=== PATIENT | female | born 1985 | race Caucasian/White ===

== ENCOUNTER 2016-07-29 22:36 | Emergency (ER) | payer OTHER ==
[~2016-07-29] VITALS: Ht 165.1 cm; Wt 94.0 kg
[~2016-07-29 22:36] MED LIST: ACET-1256 PO; CETI10TA10 PO; CIPR-255 PO; EFFSR150 PO; EPP3/2 IM; IBUP-103 PO; LEVOIUD INT UTER
[2016-07-29 22:45] VITALS: TEMP 36.6; Ht 165.1 cm; Wt 94.0 kg
[2016-07-29] MEDS ORDERED: METHYLPREDNISOLONE 125 MG VIAL IV STA (22:45)
[2016-07-29] MEDS ORDERED: SODIUM CHLORIDE 0.9% 1000ML 1,000 ML IV ONE (22:45)
[2016-07-29 22:57] LABS: COMPLETE YES; HEMATOCRIT 42.3 % (37-47); IG% 0.1 %; LYMPH % 38.5 %; LYMPH ABS # 3.13 K/uL (1.2-3.4); MEAN CELL VOLUME 89.2 fL (80-100); MEAN CORPUSCULAR HEMOGLOBIN 31.4 pg (25-34); MEAN CORPUSCULAR HGB CONC 35.2 g/dl (32-36); MEAN PLATELET VOLUME 9.8 fL (7.4-10.4); MONO % 3.3 %; NEUT % 58.1 %; PLATELET COUNT 282 K/uL (130-400); RED BLOOD COUNT 4.74 M/uL (4.2-5.4); WHITE BLOOD COUNT 8.12 K/uL (4.8-10.8)
[2016-07-29] MEDS ORDERED: TRAM-453 PO (23:04)
[2016-07-29] MEDS ORDERED: DIPH1TAB87 PO (23:04)
[2016-07-29] MEDS ORDERED: DiphenhydrAMINE HCL 50 MG/ML VIAL ONE (23:10)
[2016-07-29 23:15] LABS: BUN/CREATININE RATIO 12.9 (10-20); POTASSIUM 3.2 mmol/L (3.5-5.1)
[2016-07-29 23:17] LABS: ALB/GLOB RATIO 1.1 (0.9-2)
[2016-07-30] MEDS ORDERED: LORAZEPAM 2 MG/ML 1 ML VIAL IV STA (00:30)
[2016-07-30] MEDS ORDERED: ALBUT/IPRATROP 3MG/0.5MG NEB 3 ML VIAL INH ONE (00:30)
[2016-07-30] MEDS ORDERED: EPP3/2 INJ (02:58)
[2016-07-30] MEDS ORDERED: PRED20TA PO (02:58)
[2016-07-30] MEDS ORDERED: ALBUTEROL HFA 8 GM INHALER INH ONE (03:00)
[2016-07-30 03:19] VITALS: BP 178/91; PULSE 99; O2SAT 99
--- NOTE | 2016-07-30 03:55 | EMERGENCY ROOM VISIT NOTE ---
History First contact with patient: 22:38 Chief Complaint: ALLERGIC REACTION Stated Complaint: ALLERGIC REACTION Nursing Triage Summary: ate plaintains 20 min [employer] ASSIST[employer], developed throat closing, hives torso. self medicated with prednisone 60 po,benadryl 50 mg po, neb albuterol and epipen. 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 allergic to sulfa, ivp dye, pineapple. meds : tramadol, effexor History of Present Illness The patient is a 30 year old female who presents to the Emergency Room with complaints of allergic reaction symptoms that began around 90 minutes prior to arrival. The patient states that she ate plan pains around 9 PM tonight, and started having flushing of her chest and tingling in her lips. She became concerned for an anaphylactic reaction and she has had similar symptoms in the past. She took oral prednisone and Benadryl at home. She used her EpiPen around 9:15 and used a nebulized albuterol treatment at home. 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 She contacted EMS who now bring the patient for further evaluation. At the time of presentation the patient's symptoms have nearly completely resolved. She does have mild itching of her scalp and did have one episode of diarrhea. She is having some minimal chest tightness but not distinct pain. No abdominal pain or difficulty breathing. She rates her current discomfort a 2/10. Review of Systems More than 10 systems were reviewed and otherwise negative with the exception of history of present illness. Past Medical/Surgical History Medical Problems: (1) Asthma (2) Celiac disease (3) section (4) Cholecystectomy (5) Kidney stone (6) Left shoulder surgrey (7) Pneumonia (8) [place] Teeth Removal Surgical Problems: (1) H/O ureterostomy Family History FH: heart disease Hypertension Social History Smoking Status: Never Smoker Alcohol Use: occasionally Drug Use: none Marital Status: single Housing Status: lives with family Occupation Status: student Current/Historical Medications Scheduled Levonorgestrel (Iud) (Mirena), 20 MCG INT UTER CONTINOUS Prednisone (Prednisone), 0 PO DAILY Venlafaxine Hcl (Effexor Extended Rel), 150 MG PO QPM Scheduled PRN Acetaminophen (Tylenol), 1,000 MG PO Q6 PRN for Headache or Pain Cetirizine Hcl (Zyrtec), 10 MG PO DAILY PRN for Allergies Diphenhydramine Hcl (Benadryl Allergy), 50 MG PO DIRECTED PRN for ALLERGIC REACTION Epinephrine (Epipen), 0.3 MG IM UD PRN for ALLERGIC REACTION Epinephrine (Epipen 2-Ian), 1 APPLN INJ DIRECTED PRN for ALLERGIC REACTION Ibuprofen Tab (Advil), 800 MG PO Q8 PRN for Pain or Fever Tramadol Hcl (Ultram), 100 MG PO Q4H PRN for Pain Allergies Coded Allergies: Pineapple (Verified Allergy, Severe, Swelling of face,hives and difficulty breathing., 07/29/16) Reported by PT. Sulfa Drugs (Verified Allergy, Intermediate, HIVES, 07/29/16) Ceftriaxone (Verified Allergy, Mild, itching, 07/29/16) Sumatriptan (Verified Allergy, Mild, ., 07/29/16) Physical Exam Vital Signs Date Time Temp Pulse Resp B/P Pulse Ox O2 Delivery O2 Flow Rate FiO2 07/30/16 03:19 99 18 178/91 99 07/30/16 02:22 96 18 170/96 94 Room Air 07/30/16 02:14 114 07/30/16 00:40 99 20 162/93 100 Room Air 07/29/16 22:45 97 Room Air 07/29/16 22:45 36.6 99 20 151/94 97 Room Air 07/29/16 22:45 102 Pain Rating (0-10): 0 Physical Exam VITALS: Vitals are noted on the nurse's note and reviewed by myself. Vital signs stable. GENERAL: Well-developed, well-nourished, white female, who is in no acute distress and resting comfortably. Patient is cooperative with the examination. HEAD: Normocephalic atraumatic. EYES: Pupils equal round and reactive to light and accommodation. Conjunctivae without injection, sclerae without icterus. Extraocular movements intact. MOUTH: Mucous membranes moist. Tonsils are not enlarged. Pharynx without erythema, blood, or exudate. Uvula midline. Airway patent. NECK: Supple without nuchal rigidity. No lymphadenopathy. No thyromegaly. Cervical spine is nontender. HEART: Regular rate and rhythm without murmurs gallops or rubs. LUNGS: Clear to auscultation bilaterally without wheezes, rales or rhonchi. No retractions or accessory muscle use. ABDOMEN: Positive normal bowel sounds x 4. Soft, nontender, without masses or organomegaly. No guarding or rebound tenderness. MUSCULOSKELETAL: No muscle atrophy, erythema, or edema noted. Full range of motion without joint tenderness in all extremities. SKIN: The skin was with scant urticaria appreciated primarily along the superior forehead and mid back Medical Decision & Procedures Laboratory Results 07/29/16 22:25 Red Blood Count 4.74, Mean Corpuscular Volume 89.2, Mean Corpuscular Hemoglobin 31.4, Mean Corpuscular Hemoglobin Concent 35.2, Mean Platelet Volume 9.8, Neutrophils (%) (Auto) 58.1, Lymphocytes (%) (Auto) 38.5, Monocytes (%) (Auto) 3.3, Eosinophils (%) (Auto) 0.0, Basophils (%) (Auto) 0.0, Neutrophils # (Auto) 4.71, Lymphocytes # (Auto) 3.13, Monocytes # (Auto) 0.27, Eosinophils # (Auto) 0.00, Basophils # (Auto) 0.00 07/29/16 22:25 Test 07/29/16 22:25 White Blood Count 8.12 K/uL (4.8-10.8) Red Blood Count 4.74 M/uL (4.2-5.4) Hemoglobin 14.9 g/dL (12.0-16.0) Hematocrit 42.3 % (37-47) Mean Corpuscular Volume 89.2 fL (80-100) Mean Corpuscular Hemoglobin 31.4 pg (25-34) Mean Corpuscular Hemoglobin Concent 35.2 g/dl (32-36) Platelet Count 282 K/uL (130-400) Mean Platelet Volume 9.8 fL (7.4-10.4) Neutrophils (%) (Auto) 58.1 % Lymphocytes (%) (Auto) 38.5 % Monocytes (%) (Auto) 3.3 % Eosinophils (%) (Auto) 0.0 % Basophils (%) (Auto) 0.0 % Neutrophils # (Auto) 4.71 K/uL (1.4-6.5) Lymphocytes # (Auto) 3.13 K/uL (1.2-3.4) Monocytes # (Auto) 0.27 K/uL (0.11-0.59) Eosinophils # (Auto) 0.00 K/uL (0-0.5) Basophils # (Auto) 0.00 K/uL (0-0.2) RDW Standard Deviation 40.3 fL (36.4-46.3) RDW Coefficient of Variation 12.6 % (11.5-14.5) Immature Granulocyte % (Auto) 0.1 % Immature Granulocyte # (Auto) 0.01 K/uL (0.00-0.02) Anion Gap 9.0 mmol/L (3-11) Est Creatinine Clear Calc Drug Dose 92.4 ml/min Estimated GFR () 86.9 Estimated GFR (Non- 75.0 BUN/Creatinine Ratio 12.9 (10-20) Calcium Level 9.0 mg/dl (8.5-10.1) Total Bilirubin 0.5 mg/dl (0.2-1) Aspartate Amino Transf (AST/SGOT) 24 U/L (15-37) Alanine Aminotransferase (ALT/SGPT) 34 U/L (12-78) Alkaline Phosphatase 66 U/L (45-117) Total Protein 7.6 gm/dl (6.4-8.2) Albumin 4.0 gm/dl (3.4-5.0) Globulin 3.6 gm/dl (2.5-4.0) Albumin/Globulin Ratio 1.1 (0.9-2) Medications Administered Medications (Trade) Dose Ordered Sig/Estuardo Route Start Time Stop Time Status Last Admin Dose Admin Sodium Chloride (Nss 1000ml) 1,000 ml @ 999 mls/hr Q1H1M ONCE IV 07/29/16 22:45 07/29/16 23:45 DC 07/29/16 22:57 999 MLS/HR Methylprednisolone Sodium Succinate (Solu-Medrol IV) 125 mg NOW STAT IV 07/29/16 22:45 07/29/16 22:47 DC 07/29/16 23:01 125 MG Diphenhydramine HCl (Benadryl Inj) 50 mg STK-MED ONCE .ROUTE 07/29/16 23:10 07/29/16 23:11 DC 07/29/16 23:10 50 MG Albuterol/ Ipratropium (Duoneb) 3 ml NOW ONCE INH 07/30/16 00:30 07/30/16 00:31 DC 07/30/16 00:39 3 ML Lorazepam (Ativan Inj) 1 mg NOW STAT IV 07/30/16 00:30 07/30/16 00:31 DC 07/30/16 00:39 1 MG ED Course Physical exam and history were performed. Nursing notes and EMR were reviewed. Patient appears to have suffered allergic reaction after eating plan pains this evening. She did use her epinephrine at home and now presents for further evaluation. IV access was established prehospital. Blood work was ordered. The patient was hydrated with normal saline here. She was given 125 mg IV Solu- Medrol. The patient's blood work is as above and was reviewed. She does not have a significant elevated white blood cell count, anemia, bandemia, or significant electrolyte imbalance. Throughout her stay the patient did report some increased itching and some wheezing. She was given additional Benadryl and a DuoNeb treatment here. The patient was also medicated with 1 mg IV Ativan. We did monitor the patient for greater than 4 hours here in the department. She had been dosed with epinephrine roughly 5-1/2 hours prior and did not appear to exhibit any rebound reaction. She was very comfortable after treatment here in the department and does appear stable for discharge home. I will give her a Ventolin inhaler as well as updated prescriptions for a prednisone taper and a new EpiPen 2 pack. The patient was asked to follow with her primary care physician in the next 1-2 days for recheck. She was certainly invited back to the ER with any new, worsening, or concerning symptoms. The chart was completed utilizing [employer] Speech Voice Recognition Software. Grammatical errors, random word insertions, pronoun errors, and incomplete sentences are an occasional consequence of this system due to software limitations, ambient noise, and hardware issues. Any formal questions or concerns about the content, text, or information contained within the body of this dictation should be directly addressed to the provider for clarification. . Medical Decision Differential diagnosis: Etiologies such as allergic reaction, anaphylaxis, urticaria, Veloz-Rufino syndrome, toxic epidermal necrolysis, erythema multiforme, cellulitis, as well as others were entertained. Impression Primary Impression: Allergic reaction Departure Information Dispostion Home / Self-Care Condition GOOD Prescriptions Epinephrine (EPIPEN 2-IAN) 0.3 Mg Inj 1 APPLN INJ DIRECTED Y for ALLERGIC REACTION, #1 PKT Prov: Cara, Teddy A., PA-C 07/30/16 Prednisone (Prednisone) 20 Mg Tab 0 PO DAILY, #18 TAB 3 DAILY FOR 3 DAYS, THEN 2 DAILY FOR 3 DAYS, THEN 1 DAILY FOR 3 DAYS. Prov: Teddy Marroquin PA-C 07/30/16 Forms HOME CARE DOCUMENTATION FORM, IMPORTANT VISIT INFORMATION Patient Instructions My [facility] Additional Instructions You were seen and evaluated today on an emergency basis only. This is not a substitute for, or an effort to provide, complete comprehensive medical care. It is not possible to recognize and treat all injuries or illnesses in a single emergency department visit. For this reason it is recommended that you followup with your primary care physician this week for ongoing care and evaluation. Take prednisone as prescribed. Use Benadryl 25-50 mg every 6 hours as needed at home. Use your EpiPen if needed. You are welcome to return to the emergency department anytime with new, worsening, or concerning symptoms.
== END 2016-07-30 03:19 | disposition home or self-care (01) ==
LOC: EDBD 22:36 → C.EDB 22:37
DX: T78.09XA Anaphylactic reaction due to other food products, initial encounter (principal); X58.XXXA Exposure to other specified factors, initial encounter

== ENCOUNTER → 2016-07-31 | Outpatient (CLI) | payer OTHER ==
[~2016-07-31] MED LIST changes: -CIPR-255 PO; +DIPH1TAB87 PO; +EPP3/2 INJ; +OXYC-57 PO; +PRED20TA PO; +PRENTAB26 PO; +TRAM-453 PO
== END | disposition home or self-care (01) ==
LOC: C.PAPS 14:06
PROVIDERS: ATTEND Obstetrics & Gynecology
DX: Z12.4 Encounter for screening for malignant neoplasm of cervix (principal)

== ENCOUNTER → 2016-11-11 | Outpatient (CLI) | payer BC ==
[~2016-11-11] MED LIST changes: +DIPH1TAB PO; -DIPH1TAB87 PO
[2016-11-11 12:47] LABS: INSULIN FASTING 16.6 mU/L (3-25); INSULIN LOG 1.2201
[2016-11-11 13:24] LABS: CHOLESTEROL/HDL RATIO 4.6
[2016-11-11 13:30] LABS: CALCULATED INSULIN SENSITIVITY 0.307
== END | disposition home or self-care (01) ==
LOC: C.LAB1850 09:31
PROVIDERS: ATTEND Obstetrics & Gynecology
DX: Z31.41 Encounter for fertility testing (principal); E28.2 Polycystic ovarian syndrome

== ENCOUNTER 2017-01-06 12:38 | Emergency (ER) | payer BC ==
[~2017-01-06] VITALS: Ht 160 cm; Wt 94.2 kg
[~2017-01-06 12:38] MED LIST changes: -OXYC-57 PO; -PRENTAB26 PO
[2017-01-06 12:42] VITALS: TEMP 36.4; Ht 160 cm; Wt 94.2 kg
[2017-01-06] MEDS ORDERED: PRENTAB26 PO (12:52)
[2017-01-06] MEDS ORDERED: KETOROLAC TROMETHAMINE 30 MG/ML VIAL IV STA (13:14)
[2017-01-06] MEDS ORDERED: SODIUM CHLORIDE 0.9% 1000ML 1,000 ML IV ONE (13:15)
--- NOTE | 2017-01-06 13:35 | EMERGENCY ROOM VISIT NOTE ---
History First contact with patient: 13:00 Chief Complaint: VAGINAL BLEEDING Stated Complaint: EXTREMELY HEAVY PERIOD History of Present Illness The patient is a 31 year old female who presents to the Emergency Room with complaints of heavy vaginal bleeding that started yesterday. The patient has a history of PCOS. She had a Mirena in place until this past August. She had it removed in August, and had a reportedly normal menses directly thereafter. The patient has not had a menses since August. She reports taking a test at home that was negative. She is having significant menstrual cramping. She took 800 mg of ibuprofen this morning with minimal relief. She is passing heavy clots. She is soaking approximately 2-3 pads per hour. The patient is . She is sexually active with one partner. She denies any fever or chills. She is feeling slightly lightheaded and nauseous particularly with standing. Review of Systems 10 system review performed and negative unless noted in HPI or below Past Medical/Surgical History Medical Problems: (1) Asthma (2) Celiac disease (3) section (4) Cholecystectomy (5) Kidney stone (6) Left shoulder surgrey (7) Pneumonia (8) [place] Teeth Removal Surgical Problems: (1) H/O ureterostomy Family History FH: heart disease Hypertension Social History Smoking Status: Never Smoker Alcohol Use: occasionally Drug Use: none Marital Status: single Housing Status: lives with family Occupation Status: student Current/Historical Medications Scheduled Multivit/Min/Iron/Fol Ac/Pren ( Vitamin), 1 TAB PO DAILY Scheduled PRN Epinephrine (Epipen), 0.3 MG IM UD PRN for ALLERGIC REACTION Oxycodone/Acetaminophen 5MG/325MG (Percocet 5MG/325MG), 1-2 TABS PO Q4H PRN for Pain Physical Exam Vital Signs Date Time Temp Pulse Resp B/P (MAP) Pulse Ox O2 Delivery O2 Flow Rate FiO2 01/06/17 16:08 80 17 146/93 99 01/06/17 15:33 80 17 146/93 99 Room Air 01/06/17 14:02 69 16 126/84 Room Air 01/06/17 13:19 60 01/06/17 12:42 36.4 74 18 160/101 99 Room Air Physical Exam VITALS: Vitals are noted on the nurse's note and reviewed by myself. Vital signs stable. GENERAL: 31-year-old female, in no acute distress, nondiaphoretic, well- developed well-nourished. SKIN: The skin was without rashes, erythema, edema, or bruising. HEAD: Normocephalic atraumatic. MOUTH: Mucous membranes moist. NECK: No JVD. HEART: Regular rate and rhythm without murmurs gallops or rubs. LUNGS: Clear to auscultation bilaterally without wheezes, rales or rhonchi. No accessory muscle use. ABDOMEN: Positive bowel sounds x 4.Soft, Mild tenderness to palpation in the suprapubic region , without organomegaly. No guarding or rebound tenderness. MUSCULOSKELETAL: No muscle atrophy, erythema, or edema noted. Strength 5/5 throughout. NEURO: Patient was alert and oriented to person place and time. Normal sensation to touch. No focal neurological deficits. Medical Decision & Procedures ER Provider Diagnostic Interpretation: PELVIC COMPLETE NON OB HISTORY: 31 years-old Female abd cramping heavy menses acute abdominal cramping with vaginal bleeding COMPARISON: CT abdomen and pelvis 03/04/2016 TECHNIQUE: Multiple real-time sonographic images of the deep pelvic structures were obtained transabdominally assessing grayscale appearance, color and spectral flow. Patient refused the transvaginal portion of the study. FINDINGS: Anteflexed uterus measures 11.0 x 5.0 x 4.2 cm. Endometrium measures 0.7 cm. Subcentimeter nabothian cysts are present. The right ovary measures 4.0 x 3.2 x 2.2 cm and is unremarkable with arterial inflow and venous outflow documented. The left ovary measures 3.3 x 2.7 x 2.4 cm and is also within normal limits with arterial inflow and venous outflow documented. No significant free pelvic fluid. IMPRESSION: 1. Unremarkable sonographic appearance of the uterus, endometrium and ovaries without evidence of ovarian torsion. 2. No significant free pelvic fluid. Laboratory Results 01/06/17 13:25 Red Blood Count 4.56, Mean Corpuscular Volume 87.5, Mean Corpuscular Hemoglobin 30.5, Mean Corpuscular Hemoglobin Concent 34.8, Mean Platelet Volume 9.9, Neutrophils (%) (Auto) 63.7, Lymphocytes (%) (Auto) 30.2, Monocytes (%) (Auto) 5.4, Eosinophils (%) (Auto) 0.6, Basophils (%) (Auto) 0.0, Neutrophils # (Auto) 4.49, Lymphocytes # (Auto) 2.13, Monocytes # (Auto) 0.38, Eosinophils # (Auto) 0.04, Basophils # (Auto) 0.00 01/06/17 13:25 Test 01/06/17 13:25 White Blood Count 7.05 K/uL (4.8-10.8) Red Blood Count 4.56 M/uL (4.2-5.4) Hemoglobin 13.9 g/dL (12.0-16.0) Hematocrit 39.9 % (37-47) Mean Corpuscular Volume 87.5 fL (80-100) Mean Corpuscular Hemoglobin 30.5 pg (25-34) Mean Corpuscular Hemoglobin Concent 34.8 g/dl (32-36) Platelet Count 294 K/uL (130-400) Mean Platelet Volume 9.9 fL (7.4-10.4) Neutrophils (%) (Auto) 63.7 % Lymphocytes (%) (Auto) 30.2 % Monocytes (%) (Auto) 5.4 % Eosinophils (%) (Auto) 0.6 % Basophils (%) (Auto) 0.0 % Neutrophils # (Auto) 4.49 K/uL (1.4-6.5) Lymphocytes # (Auto) 2.13 K/uL (1.2-3.4) Monocytes # (Auto) 0.38 K/uL (0.11-0.59) Eosinophils # (Auto) 0.04 K/uL (0-0.5) Basophils # (Auto) 0.00 K/uL (0-0.2) RDW Standard Deviation 39.9 fL (36.4-46.3) RDW Coefficient of Variation 12.4 % (11.5-14.5) Immature Granulocyte % (Auto) 0.1 % Immature Granulocyte # (Auto) 0.01 K/uL (0.00-0.02) Anion Gap 8.0 mmol/L (3-11) Est Creatinine Clear Calc Drug Dose 122.4 ml/min Estimated GFR () 128.4 Estimated GFR (Non- 110.8 BUN/Creatinine Ratio 13.8 (10-20) Calcium Level 9.0 mg/dl (8.5-10.1) Total Bilirubin 0.5 mg/dl (0.2-1) Aspartate Amino Transf (AST/SGOT) 20 U/L (15-37) Alanine Aminotransferase (ALT/SGPT) 27 U/L (12-78) Alkaline Phosphatase 75 U/L (45-117) Total Protein 7.6 gm/dl (6.4-8.2) Albumin 3.9 gm/dl (3.4-5.0) Globulin 3.7 gm/dl (2.5-4.0) Albumin/Globulin Ratio 1.1 (0.9-2) Human Chorionic Gonadotropin, Qual NEG (NEG) Medications Administered Medications (Trade) Dose Ordered Sig/Estuardo Route Start Time Stop Time Status Last Admin Dose Admin Sodium Chloride 1,000 ml @ 999 mls/hr Q1H1M ONCE IV 01/06/17 13:15 01/06/17 14:15 DC 01/06/17 14:02 999 MLS/HR Ketorolac Tromethamine (Toradol Inj) 30 mg NOW STAT IV 01/06/17 13:14 01/06/17 13:17 DC 01/06/17 14:01 30 MG Morphine Sulfate (MoRPHine SULFATE INJ) 4 mg Q1H PRN IV 01/06/17 15:15 01/06/17 16:26 DC 01/06/17 15:31 4 MG ED Course Patient was seen and examined Vital signs including blood pressure were reviewed medications list was verified with patient Labs were obtained, and a saline lock was established The patient was hydrated with 1 L of normal saline. She was given Toradol 30 mg IV for pain. Imaging was performed and reviewed Upon reevaluation, the patient was still complaining of pain. She was given morphine 4 mg IV We discussed the results of her workup. She voiced understanding. She was comfortable being discharged home. I reviewed discharge instructions the patient. They voiced understanding and had no further questions. Medical Decision Differential diagnosis: Abnormal vaginal bleeding, menorrhagia, metrorrhagia, uterine fibroids, endometrial polyps, thyroid abnormality, anemia secondary to acute blood loss, ectopic , intrauterine , ovarian cysts, vaginal laceration This patient is a 31-year-old female that presented to the emergency department with complaint of heavy vaginal bleeding and menstrual cramping. She has not had a menses in several months. She has a history of PCOS. On exam, she had mild tenderness in the suprapubic region. Labs were drawn. She is not significantly anemic. She is not . I performed a pelvic ultrasound, which did not have any significant abnormalities. It is possible that she is having a heavy menses since she hasn't had one in several months. The patient had good pain control in the emergency department. 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 This chart was completed in part utilizing [employer] Speech Voice Recognition software. Attempts were made to minimize the grammatical errors, random word insertions, pronoun errors and incomplete sentences. Any formal questions or concerns about the content, text or information contained within the body of this dictation should be directly addressed to the provider for clarification. Medication Reconcilliation Current Medication List: was personally reviewed by me Blood Pressure Screening Patient's blood pressure: Elevated blood pressure Blood pressure disposition: Elevated BP felt to be situational Impression Primary Impression: Menorrhagia Departure Information Dispostion Home / Self-Care Condition FAIR Prescriptions Oxycodone/Acetaminophen 5MG/325MG (PERCOCET 5MG/325MG) Tab 1-2 TABS PO Q4H Y for Pain, #12 TAB For Initial Treatment Prov: Dixie Dover PA-C 01/06/17 Referrals Ke Mcfarland M.D.(REBECCA) (PCP) Orquidea Wells M.D.(STUDENT LIFE VICE PRESIDENT/OB) Patient Instructions My [facility] Additional Instructions You were evaluated in the emergency department for heavy menstrual bleeding. An ultrasound was performed and did not show any significant abnormalities. Your blood counts also are currently stable. Please follow-up with your property developer as soon as possible. Call tomorrow morning for a follow-up appointment. Ibuprofen 600 mg every 6 hours Percocet 1-2 tabs every 4 hours for severe pain. Do not drink alcohol or drive while taking this medication. This may be taken with ibuprofen, but avoid Tylenol. Return to the emergency department if you have any of the following symptoms: -Soaking more than 2 pads per hour -Dizziness, lightheadedness, difficulty breathing or pain in your chest -Severe abdominal pain
[2017-01-06 13:54] LABS: COMPLETE YES; EOS % 0.6 %; HEMATOCRIT 39.9 % (37-47); IG% 0.1 %; LYMPH % 30.2 %; LYMPH ABS # 2.13 K/uL (1.2-3.4); MEAN CELL VOLUME 87.5 fL (80-100); MEAN CORPUSCULAR HEMOGLOBIN 30.5 pg (25-34); MEAN CORPUSCULAR HGB CONC 34.8 g/dl (32-36); MEAN PLATELET VOLUME 9.9 fL (7.4-10.4); MONO % 5.4 %; NEUT % 63.7 %; PLATELET COUNT 294 K/uL (130-400); RED BLOOD COUNT 4.56 M/uL (4.2-5.4); WHITE BLOOD COUNT 7.05 K/uL (4.8-10.8)
[2017-01-06 14:15] LABS: BUN/CREATININE RATIO 13.8 (10-20); CREATININE 0.72 mg/dl (0.60-1.20); POTASSIUM 3.7 mmol/L (3.5-5.1)
[2017-01-06 14:18] LABS: ALB/GLOB RATIO 1.1 (0.9-2); PREG INTERNAL NEGATIVE QC NEG CLEAR BACKGROUND; PREG INTERNAL POSITIVE QC POS CONTROL LINE
--- NOTE | 2017-01-06 15:10 | DIAGNOSTIC IMAGING REPORT ---
PELVIC COMPLETE NON OB HISTORY: 31 years-old Female abd cramping heavy menses acute abdominal cramping with vaginal bleeding COMPARISON: CT abdomen and pelvis 03/04/2016 TECHNIQUE: Multiple real-time sonographic images of the deep pelvic structures were obtained transabdominally assessing grayscale appearance, color and spectral flow. Patient refused the transvaginal portion of the study. FINDINGS: Anteflexed uterus measures 11.0 x 5.0 x 4.2 cm. Endometrium measures 0.7 cm. Subcentimeter nabothian cysts are present. The right ovary measures 4.0 x 3.2 x 2.2 cm and is unremarkable with arterial inflow and venous outflow documented. The left ovary measures 3.3 x 2.7 x 2.4 cm and is also within normal limits with arterial inflow and venous outflow documented. No significant free pelvic fluid. IMPRESSION: 1. Unremarkable sonographic appearance of the uterus, endometrium and ovaries without evidence of ovarian torsion. 2. No significant free pelvic fluid. The above report was generated using voice recognition software. It may contain grammatical, syntax or spelling errors. Electronically signed by: Tommy Mcallister M.D. 01/06/2017 3:09 PM Dictated Date/Time: 01/06/2017 3:06 PM
[2017-01-06] MEDS ORDERED: MoRPHine SULFATE 4 MG/ML 1 ML CARP\\VIAL IV PRN (15:15)
[2017-01-06] MEDS ORDERED: OXYC-57 PO (15:48)
[2017-01-06 16:08] VITALS: BP 146/93; PULSE 80; O2SAT 99
== END 2017-01-06 16:08 | disposition home or self-care (01) ==
LOC: C.EDB 12:39 → C.EDA 16:08
DX: N92.0 Excessive and frequent menstruation with regular cycle (principal); E28.2 Polycystic ovarian syndrome; J45.909 Unspecified asthma, uncomplicated; K90.0 Celiac disease; Z87.442 Personal history of urinary calculi; Z82.49 Family history of ischemic heart disease and other diseases of the circulatory system

== ENCOUNTER → 2017-06-29 | Outpatient (CLI) | payer OTHER ==
[~2017-06-29] MED LIST changes: -ACET-1256 PO; -CETI10TA10 PO; -DIPH1TAB PO; -EFFSR150 PO; -EPP3/2 INJ; -IBUP-103 PO; -LEVOIUD INT UTER; +OXYC-57 PO; -PRED20TA PO; +PRENTAB26 PO; -TRAM-453 PO
== END | disposition home or self-care (01) ==
LOC: C.LAB1850 13:16
PROVIDERS: ATTEND Obstetrics & Gynecology
DX: O26.899 Other specified pregnancy related conditions, unspecified trimester (principal)

== ENCOUNTER → 2017-07-13 | Outpatient (CLI) | payer OTHER ==
[~2017-07-13] MED LIST changes: +DOXY25TA8 PO; -OXYC-57 PO; +PYRI1TAB40 PO; +VNTHFA/IN INH
== END | disposition home or self-care (01) ==
LOC: C.LABSPEC 10:59
PROVIDERS: ATTEND Obstetrics & Gynecology
DX: Z34.81 Encounter for supervision of other normal pregnancy, first trimester (principal)

== ENCOUNTER 2017-07-19 17:15 | Emergency (ER) | payer OTHER ==
[~2017-07-19] VITALS: Ht 160 cm; Wt 88.0 kg
[~2017-07-19 17:15] MED LIST changes: -DOXY25TA8 PO; -PYRI1TAB40 PO; -VNTHFA/IN INH
[2017-07-19 17:18] VITALS: TEMP 36.9; Ht 160 cm; Wt 88.0 kg
[2017-07-19] MEDS ORDERED: MoRPHine SULFATE 4 MG/ML 1 ML CARP\\VIAL IV STA ×2 (17:33→19:30)
[2017-07-19] MEDS ORDERED: VNTHFA/IN INH (18:01)
[2017-07-19] MEDS ORDERED: PYRI1TAB40 PO (18:01)
[2017-07-19] MEDS ORDERED: DOXY25TA8 PO (18:01)
[2017-07-19 18:12] LABS: EOS % 0.3 %; EOS ABS # 0.03 K/uL (0-0.5); HEMATOCRIT 37.8 % (37-47); HEMOGLOBIN 13.5 g/dL (12.0-16.0); IG# 0.02 K/uL (0.00-0.02); LYMPH % 18.2 %; LYMPH ABS # 1.74 K/uL (1.2-3.4); MEAN CELL VOLUME 86.9 fL (80-100); MEAN CORPUSCULAR HGB CONC 35.7 g/dl (32-36); MEAN PLATELET VOLUME 10.1 fL (7.4-10.4); MONO % 3.1 %; NEUT % 78.2 %; NEUT ABS # 7.47 K/uL (1.4-6.5); PLATELET COUNT 254 K/uL (130-400); RED CELL DISTRIBUTION WIDTH CV 12.7 % (11.5-14.5); RED CELL DISTRIBUTION WIDTH SD 40.6 fL (36.4-46.3); WHITE BLOOD COUNT 9.56 K/uL (4.8-10.8)
[2017-07-19 18:30] LABS: CALCIUM 8.3 mg/dl (8.5-10.1); CREATININE 0.67 mg/dl (0.60-1.20); POTASSIUM 3.6 mmol/L (3.5-5.1)
--- NOTE | 2017-07-19 18:36 | DIAGNOSTIC IMAGING REPORT ---
L SHOULDER MIN 2 VIEWS ROUTINE CLINICAL HISTORY: 31 years-old Female presenting with shoulder pain. TECHNIQUE: Internal rotation, external rotation, and Grashey views of the left shoulder were obtained. COMPARISON: Chest x-ray from 06/02/2015. FINDINGS: No acute fracture or malalignment. Cystic changes suggested in the bony glenoid. Cystic change also suggested at the rotator cuff insertion site suggesting chronic impingement. No radiographic soft tissue abnormality. IMPRESSION: 1. No acute osseous injury. 2. Mild degenerative changes of the glenohumeral joint. 3. Suggestion of chronic rotator cuff impingement. Electronically signed by: Riley Barcenas M.D. 07/19/2017 6:35 PM Dictated Date/Time: 07/19/2017 6:33 PM
--- NOTE | 2017-07-19 18:38 | DIAGNOSTIC IMAGING REPORT ---
CERVICAL SPINE 2 OR 3 VIEWS CLINICAL HISTORY: 31 years-old Female presenting with L shoulder pain . TECHNIQUE: Lateral, frontal, and open-mouth odontoid views of the cervical spine were obtained. COMPARISON: 12/22/2005. FINDINGS: Slight reversal of normal cervical lordosis unchanged and possibly positional. Vertebral bodies maintain normal height and alignment. Intervertebral disc spaces maintained. The C7 vertebral body is fully visualized. No evidence of degenerative change. No radiographic evidence of fracture or subluxation. Lateral masses of C1 articulate normally with C2. Normal predental interval. Normal prevertebral soft tissues. IMPRESSION: No evidence of acute osseous injury or degenerative change of the cervical spine. Electronically signed by: Riley Barcenas M.D. 07/19/2017 6:36 PM Dictated Date/Time: 07/19/2017 6:35 PM
[2017-07-19] MEDS ORDERED: DiphenhydrAMINE HCL 50 MG/ML VIAL IV STA (19:49)
--- NOTE | 2017-07-19 19:49 | DIAGNOSTIC IMAGING REPORT ---
CHEST ONE VIEW PORTABLE CLINICAL HISTORY: 31 years-old Female presenting with cp. TECHNIQUE: Portable upright AP view of the chest was obtained. COMPARISON: 06/02/2015. FINDINGS: Cardiomediastinal silhouette normal. No focal opacity. No large effusion or pneumothorax. Osseous structures normal. Upper abdomen normal. IMPRESSION: 1. No acute cardiopulmonary disease. Electronically signed by: Riley Barcenas M.D. 07/19/2017 7:48 PM Dictated Date/Time: 07/19/2017 7:47 PM
[2017-07-19] MEDS ORDERED: OXYCODONE IR HOME PACK PO ONE (20:30)
[2017-07-19 20:40] VITALS: BP 126/85; PULSE 74; O2SAT 99
--- NOTE | 2017-07-19 21:39 | EMERGENCY ROOM VISIT NOTE ---
History Report prepared by Chris: Luz Herrera Under the Supervision of: Dr. Matt Pennington D.O. First contact with patient: 17:23 Chief Complaint: SHOULDER PAIN Stated Complaint: L SHOULDER & ARM VERY PAINFUL INTO CHEST AND BACK History of Present Illness The patient is a 31 year old female who presents to the Emergency Room with complaints of worsening left shoulder pain starting last night. 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 Around midnight while she was working, she started having left shoulder pain. The pain worsened throughout the night as she was working. She has taken Tylenol, applied ice and heat, and lidocaine patch to no significant relief. The pain worsened after she woke up from sleep. It is radiating into her chest and back. The pain worsens with moving her left arm. Her left arm feels weak and her hand is swollen. She has a history of 3 shoulder surgeries on the left side. 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 She has been nauseous. She is currently 8 weeks . She denies any abdominal pain. She denies any history of diabetes, hypertension, high cholesterol, or smoking. Source of History: patient Onset: last night Position: shoulder (left) Timing: worsening Modifying Factors (Worsening): movement Associated Symptoms: + chest pain, + back pain, + weakness Review of Systems See HPI for pertinent positives & negatives. A total of 10 systems reviewed and were otherwise negative. Past Medical & Surgical Medical Problems: (1) Asthma (2) Celiac disease (3) section (4) Cholecystectomy (5) Kidney stone (6) Left shoulder surgrey (7) Pneumonia (8) [place] Teeth Removal Surgical Problems: (1) H/O ureterostomy Family History FH: heart disease Hypertension Social History Smoking Status: Never Smoker Alcohol Use: occasionally Drug Use: none Marital Status: single Housing Status: lives with family Occupation Status: student Current/Historical Medications Scheduled Doxylamine Succinate (Sleep) (Unisom), 1 TAB PO DAILY Multivit/Min/Iron/Fol Ac/Pren ( Vitamin), 1 TAB PO DAILY Pyridoxine HCl (Vitamin B6), 25 MG PO TID Scheduled PRN Albuterol Hfa (Ventolin Hfa), 2-4 PUFFS INH Q6H PRN for Wheezing Epinephrine (Epipen), 0.3 MG IM UD PRN for ALLERGIC REACTION Allergies Coded Allergies: Pineapple (Verified Allergy, Severe, Swelling of face,hives and difficulty breathing., 07/19/17) Reported by PT. Iodinated Diagnostic Agents (Unverified Allergy, Intermediate, ., 07/19/17) Sulfa Drugs (Verified Allergy, Intermediate, HIVES, 07/19/17) Ceftriaxone (Verified Allergy, Mild, itching, 07/19/17) Sumatriptan (Verified Allergy, Mild, ., 07/19/17) Physical Exam Vital Signs Date Time Temp Pulse Resp B/P (MAP) Pulse Ox O2 Delivery O2 Flow Rate FiO2 07/19/17 20:40 74 19 126/85 99 07/19/17 19:49 81 16 128/86 98 Room Air 07/19/17 18:00 72 18 154/98 98 Room Air 07/19/17 17:45 87 07/19/17 17:18 36.9 95 20 148/87 98 Room Air Physical Exam GENERAL: Sitting up in bed, no acute distress, nontoxic EYE EXAM: normal conjunctiva. OROPHARYNX: no exudate, no erythema, lips, buccal mucosa, and tongue normal and mucous membranes are moist NECK: supple, no nuchal rigidity, no adenopathy, acute reproducible tenderness to the left cervical paraspinal region tracking into the trapezius, left humerus , and left chest. LUNGS: Clear to auscultation. Normal chest wall mechanics HEART: no murmurs, S1 normal and S2 normal ABDOMEN: abdomen soft, non-tender, normo-active bowel sounds, no masses, no rebound or guarding. BACK: Back is symmetrical on inspection and there is no deformity, no midline tenderness, no CVA tenderness. SKIN: no rashes and no bruising UPPER EXTREMITIES: Grasp along with flexion extension of wrist, elbow, abduction of digits, grasp 5/5 bilaterally. Radial pulses 2/4. Gross sensation intact. Severe pain with flexion extension and abduction of left humerus more than 20 degrees. No surrounding erythema or induration over the humeral head. No swelling of the humerus or forearm LOWER EXTREMITIES: No pitting edema. NEURO EXAM: Normal sensorium, cranial nerves II-XII grossly intact. No focal deficit with the exception of left humerus. Medical Decision & Procedures ER Provider Diagnostic Interpretation: Radiology results as stated below per my review and the radiologist's interpretation: CHEST ONE VIEW PORTABLE CLINICAL HISTORY: 31 years-old Female presenting with cp. TECHNIQUE: Portable upright AP view of the chest was obtained. COMPARISON: 06/02/2015. FINDINGS: Cardiomediastinal silhouette normal. No focal opacity. No large effusion or pneumothorax. Osseous structures normal. Upper abdomen normal. IMPRESSION: 1. No acute cardiopulmonary disease. Electronically signed by: Riley Barcenas M.D. 07/19/2017 7:48 PM Dictated Date/Time: 07/19/2017 7:47 PM CERVICAL SPINE 2 OR 3 VIEWS CLINICAL HISTORY: 31 years-old Female presenting with L shoulder pain . TECHNIQUE: Lateral, frontal, and open-mouth odontoid views of the cervical spine were obtained. COMPARISON: 12/22/2005. FINDINGS: Slight reversal of normal cervical lordosis unchanged and possibly positional. Vertebral bodies maintain normal height and alignment. Intervertebral disc spaces maintained. The C7 vertebral body is fully visualized. No evidence of degenerative change. No radiographic evidence of fracture or subluxation. Lateral masses of C1 articulate normally with C2. Normal predental interval. Normal prevertebral soft tissues. IMPRESSION: No evidence of acute osseous injury or degenerative change of the cervical spine. Electronically signed by: Riley Barcenas M.D. 07/19/2017 6:36 PM Dictated Date/Time: 07/19/2017 6:35 PM L SHOULDER MIN 2 VIEWS ROUTINE CLINICAL HISTORY: 31 years-old Female presenting with shoulder pain. TECHNIQUE: Internal rotation, external rotation, and Grashey views of the left shoulder were obtained. COMPARISON: Chest x-ray from 06/02/2015. FINDINGS: No acute fracture or malalignment. Cystic changes suggested in the bony glenoid. Cystic change also suggested at the rotator cuff insertion site suggesting chronic impingement. No radiographic soft tissue abnormality. IMPRESSION: 1. No acute osseous injury. 2. Mild degenerative changes of the glenohumeral joint. 3. Suggestion of chronic rotator cuff impingement. Electronically signed by: Riley Barcenas M.D. 07/19/2017 6:35 PM Dictated Date/Time: 07/19/2017 6:33 PM Laboratory Results 07/19/17 17:46 Red Blood Count 4.35, Mean Corpuscular Volume 86.9, Mean Corpuscular Hemoglobin 31.0, Mean Corpuscular Hemoglobin Concent 35.7, Mean Platelet Volume 10.1, Neutrophils (%) (Auto) 78.2, Lymphocytes (%) (Auto) 18.2, Monocytes (%) (Auto) 3.1, Eosinophils (%) (Auto) 0.3, Basophils (%) (Auto) 0.0, Neutrophils # (Auto) 7.47, Lymphocytes # (Auto) 1.74, Monocytes # (Auto) 0.30, Eosinophils # (Auto) 0.03, Basophils # (Auto) 0.00 07/19/17 17:46 Test 07/19/17 17:46 White Blood Count 9.56 K/uL (4.8-10.8) Red Blood Count 4.35 M/uL (4.2-5.4) Hemoglobin 13.5 g/dL (12.0-16.0) Hematocrit 37.8 % (37-47) Mean Corpuscular Volume 86.9 fL (80-100) Mean Corpuscular Hemoglobin 31.0 pg (25-34) Mean Corpuscular Hemoglobin Concent 35.7 g/dl (32-36) Platelet Count 254 K/uL (130-400) Mean Platelet Volume 10.1 fL (7.4-10.4) Neutrophils (%) (Auto) 78.2 % Lymphocytes (%) (Auto) 18.2 % Monocytes (%) (Auto) 3.1 % Eosinophils (%) (Auto) 0.3 % Basophils (%) (Auto) 0.0 % Neutrophils # (Auto) 7.47 K/uL (1.4-6.5) Lymphocytes # (Auto) 1.74 K/uL (1.2-3.4) Monocytes # (Auto) 0.30 K/uL (0.11-0.59) Eosinophils # (Auto) 0.03 K/uL (0-0.5) Basophils # (Auto) 0.00 K/uL (0-0.2) RDW Standard Deviation 40.6 fL (36.4-46.3) RDW Coefficient of Variation 12.7 % (11.5-14.5) Immature Granulocyte % (Auto) 0.2 % Immature Granulocyte # (Auto) 0.02 K/uL (0.00-0.02) Anion Gap 7.0 mmol/L (3-11) Est Creatinine Clear Calc Drug Dose 126.8 ml/min Estimated GFR () 134.8 Estimated GFR (Non- 116.3 BUN/Creatinine Ratio 9.3 (10-20) Calcium Level 8.3 mg/dl (8.5-10.1) Troponin I < 0.015 ng/ml (0-0.045) Laboratory results per my review. Medications Administered Medications (Trade) Dose Ordered Sig/Estuardo Route Start Time Stop Time Status Last Admin Dose Admin Morphine Sulfate (MoRPHine SULFATE INJ) 4 mg NOW STAT IV 07/19/17 17:33 07/19/17 17:37 DC 07/19/17 17:51 4 MG Morphine Sulfate (MoRPHine SULFATE INJ) 4 mg NOW STAT IV 07/19/17 19:30 07/19/17 19:32 DC 07/19/17 19:43 4 MG Diphenhydramine HCl (Benadryl Inj) 50 mg NOW STAT IV 07/19/17 19:49 07/19/17 19:50 DC 07/19/17 19:53 50 MG Oxycodone HCl (Roxicodone Immediate Rel 5MG Home Pack) 1 homepack UD ONCE PO 07/19/17 20:30 07/19/17 20:31 DC 07/19/17 20:30 1 HOMEPACK ECG Per My Interpretation Indication: chest pain Rate (beats per minute): 82 Rhythm: sinus rhythm Findings: no ectopy, other (normal axis) ED Course ED COURSE: Vital signs were reviewed and showed hypertension. The patients medical record was reviewed The above diagnostic studies were performed and reviewed. ED treatments and interventions as stated above. 1727: The patient was evaluated in room B10. A complete history and physical examination was performed. 1733: Morphine Sulfate 4 mg IV. 1925: I reevaluated the patient. She was feeling much better until her arm was moved for X-ray. 0: Morphine Sulfate 4 mg IV. 1948: Benadryl Inj 50 mg IV. 2024: Upon reevaluation, the patient is feeling much better.I discussed my findings with the patient and she understands and agrees with the treatment plan. Based on the patients age, coexisting illnesses, exam and lab findings the decision to treat as an outpatient was made. The patient remained stable while under my care. The patient appeared well at the time of discharge. 2030: Oxycodone HCl 1 homepack PO. Medical Decision Differential diagnosis: Etiologies such as fracture, dislocation, neurovascular compromise, compartment syndrome, soft tissue injury, as well as others were entertained. Patient is a 31-year-old female that presents the ER for severe left shoulder pain. On exam she is clear reproducible pain from the shoulder to her trapezius and lateral left neck along with throughout her chest and the back of her scapula. Pain is significantly worsened with any movement of the humerus. X-ray showed no fracture. Chest x-ray unremarkable. EKG was normal. Troponin was negative. CBC along with BMP was unremarkable. Patient was given 2 doses of morphine and did feel significantly better. She was neurovascularly intact. Based on her symptoms I do believe that this most consistent with a muscle skeletal issue originating from the shoulder. Do not believe this is cardiac. Nothing to suggest DVT. Good pulses not suggesting ischemia. Patient was updated at bedside and discharged with OxyIR to follow-up with PCP and orthopedics tomorrow. Discussed with Pt concerning signs and symptoms to watch out for. Pt was instructed to follow up with their PCP and discussed with the patient their option to return to the ED at anytime for persistent or worsening symptoms. The appropriate anticipatory guidance and out-patient management, including indications for return to the emergency department, were explained at length to the patient and understood. Medication Reconcilliation Current Medication List: was personally reviewed by me Blood Pressure Screening Patient's blood pressure: Elevated blood pressure Blood pressure disposition: Elevated BP felt to be situational Impression Primary Impression: Shoulder pain Scribe Attestation The scribe's documentation has been prepared under my direction and personally reviewed by me in its entirety. I confirm that the note above accurately reflects all work, treatment, procedures, and medical decision making performed by me. Departure Information Dispostion Home / Self-Care Referrals Ke Mcfarland M.D.(REBECCA) (PCP) Teddy Ariza M.D. Forms HOME CARE DOCUMENTATION FORM, IMPORTANT VISIT INFORMATION Patient Instructions ED Shoulder Pain [place], My [employer] Additional Instructions Please follow up with your primary care doctor with in the next 24 hours. Any worsening of your symptoms, please return to the ED immediately. This includes any fevers greater than 100.4, worsening pain, chest pain, shortness breath, persistent nausea, vomiting, unable to eat or drink, or any other concerning signs or symptoms from your standpoint. You were given medications during this visit that will inhibit your ability to drive, operate machinery and work. Please do NOT drive, operate machinery or work for the next 12hrs. You were also given a prescription for a narcotic. While taking this medication you should also not drive, operate machinery and or work. Orthopedics as listed below. Please call the number tomorrow morning at 8 AM schedule appointment. Problem Qualifiers Primary Impression: Shoulder pain Chronicity: acute Laterality: left Qualified Codes: M25.512 - Pain in left shoulder
== END 2017-07-19 20:41 | disposition home or self-care (01) ==
LOC: C.EDB 17:17
DX: M25.512 Pain in left shoulder (principal); J45.909 Unspecified asthma, uncomplicated; K90.0 Celiac disease; Z91.018 Allergy to other foods; Z88.2 Allergy status to sulfonamides; Z88.8 Allergy status to other drugs, medicaments and biological substances

== ENCOUNTER → 2017-07-24 | Outpatient (CLI) | payer OTHER ==
[~2017-07-24] MED LIST changes: +DOXY25TA8 PO; +PYRI1TAB40 PO; +VNTHFA/IN INH
[2017-07-24 12:27] LABS: EOS % 0.2 %; EOS ABS # 0.02 K/uL (0-0.5); HEMATOCRIT 39.1 % (37-47); HEMOGLOBIN 13.7 g/dL (12.0-16.0); IG# 0.01 K/uL (0.00-0.02); LYMPH % 23.1 %; LYMPH ABS # 1.87 K/uL (1.2-3.4); MEAN CELL VOLUME 88.3 fL (80-100); MEAN CORPUSCULAR HEMOGLOBIN 30.9 pg (25-34); MEAN PLATELET VOLUME 9.8 fL (7.4-10.4); MONO % 4.3 %; MONO ABS # 0.35 K/uL (0.11-0.59); NEUT % 72.3 %; NEUT ABS # 5.83 K/uL (1.4-6.5); PLATELET COUNT 295 K/uL (130-400); RED CELL DISTRIBUTION WIDTH CV 12.8 % (11.5-14.5); RED CELL DISTRIBUTION WIDTH SD 41.5 fL (36.4-46.3); WHITE BLOOD COUNT 8.08 K/uL (4.8-10.8)
== END | disposition home or self-care (01) ==
LOC: C.LAB1850 10:21
PROVIDERS: ATTEND Obstetrics & Gynecology
DX: Z34.81 Encounter for supervision of other normal pregnancy, first trimester (principal)

== ENCOUNTER 2017-08-20 23:27 | Emergency (ER) | payer OTHER ==
[~2017-08-20] VITALS: Ht 160 cm; Wt 87.4 kg
[2017-08-20 23:31] VITALS: TEMP 36.7; Ht 160 cm; Wt 87.4 kg
--- NOTE | 2017-08-20 23:54 | EMERGENCY ROOM VISIT NOTE ---
History Report prepared by Chris: Tegan Mistry Under the Supervision of: Dr. Cary Salcido D.O. First contact with patient: 23:36 Chief Complaint: DIZZY Stated Complaint: runs of pucd?, lightheaded History of Present Illness The patient is a 31 year old female who presents to the Emergency Room with complaints of persistent general lightheadedness since 2015 today. She has a history of PVCs and could feel them come at about that time. She reports mild chest discomfort similar to acid reflux. She has a history Celiacs disease. She went to dinner with her spouse this evening and developed nausea, diarrhea, the associated acid reflux feeling in her chest, hives and itchy skin. She reports an allergy to pineapple. She denies any vomiting. She denies any shortness of breath or cough. She is currently 12.5 weeks with her second child. She states that she has been once before. She denies any abdominal pain or vaginal discharge. She notes mild left leg cramping. She states that she feels continued lightheadedness. She reports left flank pain since this evening and while at work. She attributes her back pain to sleeping wrong. She has a history of asthma and migraines. She takes vitamins. Source of History: patient Onset: 2014 today Position: other (general ) Quality: other (lightheadedness) Timing: other (persistent) Associated Symptoms: + chest pain, + nausea, + back pain (left flank), + diarrhea, + rash (hives), No cough, No SOB, No vomiting, No abdominal pain Note: Notes itchy skin and left leg cramping. Denies vaginal discharge. Review of Systems See HPI for pertinent positives & negatives. A total of 10 systems reviewed and were otherwise negative. Past Medical & Surgical Medical Problems: (1) Asthma (2) Celiac disease (3) section (4) Cholecystectomy (5) Kidney stone (6) Left shoulder surgrey (7) Pneumonia (8) [place] Teeth Removal Surgical Problems: (1) H/O ureterostomy Family History FH: heart disease Hypertension Social History Smoking Status: Never Smoker Alcohol Use: occasionally Drug Use: none Marital Status: single Housing Status: lives with family Occupation Status: student Current/Historical Medications Scheduled Doxylamine Succinate (Sleep) (Unisom), 1 TAB PO DAILY Multivit/Min/Iron/Fol Ac/Pren ( Vitamin), 1 TAB PO DAILY Pyridoxine HCl (Vitamin B6), 25 MG PO TID Scheduled PRN Albuterol Hfa (Ventolin Hfa), 2-4 PUFFS INH Q6H PRN for Wheezing Epinephrine (Epipen), 0.3 MG IM UD PRN for ALLERGIC REACTION Allergies Coded Allergies: Pineapple (Verified Allergy, Severe, Swelling of face,hives and difficulty breathing., 07/19/17) Reported by PT. Iodinated Diagnostic Agents (Unverified Allergy, Intermediate, ., 07/19/17) Sulfa Drugs (Verified Allergy, Intermediate, HIVES, 07/19/17) Ceftriaxone (Verified Allergy, Mild, itching, 07/19/17) Sumatriptan (Verified Allergy, Mild, ., 07/19/17) Physical Exam Vital Signs Date Time Temp Pulse Resp B/P (MAP) Pulse Ox O2 Delivery O2 Flow Rate FiO2 08/21/17 02:38 78 18 117/77 98 08/21/17 01:20 75 18 125/75 98 Room Air 08/20/17 23:51 74 08/20/17 23:31 36.7 80 17 150/93 99 Room Air Physical Exam HEENT: Head - normocephalic and atraumatic Pupils are equal, round, and reactive to light. Extraocular eye muscles are intact, and sclera are anicteric. Nose - moist nasal mucosa without discharge. Mouth - moist buccal mucosa. Oropharynx is nonerythematous and there is no tonsillar exudate or edema noted. Neck: Supple; no JVD, nuchal rigidity, cervical lymphadenopathy, or auscultated bruits. Heart: Regular rate and rhythm. There is a normal S1 and S2 with no murmurs, clicks, or gallops appreciated. Lungs: Clear to auscultation bilaterally with no wheezes, rales, or rhonchi. Abdomen: Soft, completely nontender, nondistended, with good bowel sounds. There are no palpable pulsatile masses or hepatosplenomegaly. There is no guarding, rigidity, or rebound noted. Extremities: No evidence of cyanosis, clubbing, or edema. There are easily palpable peripheral pulses. Skin: warm and dry with good turgor. some reactive lesions on her forehead consistent with hives Medical Decision & Procedures Laboratory Results 08/21/17 00:54 Red Blood Count 4.14, Mean Corpuscular Volume 87.0, Mean Corpuscular Hemoglobin 31.2, Mean Corpuscular Hemoglobin Concent 35.8, Mean Platelet Volume 9.4, Neutrophils (%) (Auto) 67.3, Lymphocytes (%) (Auto) 27.9, Monocytes (%) (Auto) 4.6, Eosinophils (%) (Auto) 0.1, Basophils (%) (Auto) 0.0, Neutrophils # (Auto) 4.63, Lymphocytes # (Auto) 1.92, Monocytes # (Auto) 0.32, Eosinophils # (Auto) 0.01, Basophils # (Auto) 0.00 08/21/17 00:54 Test 08/20/17 23:46 08/21/17 00:54 Urine Color YELLOW Urine Appearance CLEAR (CLEAR) Urine pH 5.0 (4.5-7.5) Urine Specific [place] 1.012 (1.000-1.030) Urine Protein NEG (NEG) Urine Glucose (UA) NEG (NEG) Urine Ketones 1+ (NEG) Urine Occult Blood NEG (NEG) Urine Nitrite NEG (NEG) Urine Bilirubin NEG (NEG) Urine Urobilinogen NEG (NEG) Urine Leukocyte Esterase NEG (NEG) White Blood Count 6.89 K/uL (4.8-10.8) Red Blood Count 4.14 M/uL (4.2-5.4) Hemoglobin 12.9 g/dL (12.0-16.0) Hematocrit 36.0 % (37-47) Mean Corpuscular Volume 87.0 fL (80-100) Mean Corpuscular Hemoglobin 31.2 pg (25-34) Mean Corpuscular Hemoglobin Concent 35.8 g/dl (32-36) Platelet Count 211 K/uL (130-400) Mean Platelet Volume 9.4 fL (7.4-10.4) Neutrophils (%) (Auto) 67.3 % Lymphocytes (%) (Auto) 27.9 % Monocytes (%) (Auto) 4.6 % Eosinophils (%) (Auto) 0.1 % Basophils (%) (Auto) 0.0 % Neutrophils # (Auto) 4.63 K/uL (1.4-6.5) Lymphocytes # (Auto) 1.92 K/uL (1.2-3.4) Monocytes # (Auto) 0.32 K/uL (0.11-0.59) Eosinophils # (Auto) 0.01 K/uL (0-0.5) Basophils # (Auto) 0.00 K/uL (0-0.2) RDW Standard Deviation 42.0 fL (36.4-46.3) RDW Coefficient of Variation 13.2 % (11.5-14.5) Immature Granulocyte % (Auto) 0.1 % Immature Granulocyte # (Auto) 0.01 K/uL (0.00-0.02) Anion Gap 10.0 mmol/L (3-11) Est Creatinine Clear Calc Drug Dose 128.3 ml/min Estimated GFR () 135.5 Estimated GFR (Non- 116.9 BUN/Creatinine Ratio 12.3 (10-20) Calcium Level 8.3 mg/dl (8.5-10.1) Total Bilirubin 0.3 mg/dl (0.2-1) Aspartate Amino Transf (AST/SGOT) 18 U/L (15-37) Alanine Aminotransferase (ALT/SGPT) 20 U/L (12-78) Alkaline Phosphatase 53 U/L (45-117) Total Protein 6.8 gm/dl (6.4-8.2) Albumin 2.8 gm/dl (3.4-5.0) Globulin 4.0 gm/dl (2.5-4.0) Albumin/Globulin Ratio 0.7 (0.9-2) Thyroid Stimulating Hormone (TSH) 0.766 uIu/ml (0.300-4.500) Laboratory results per my review. Medications Administered Medications (Trade) Dose Ordered Sig/Estuardo Route Start Time Stop Time Status Last Admin Dose Admin Sodium Chloride 1,000 ml @ 999 mls/hr Q1H1M STAT IV 08/21/17 01:17 18 02:17 DC 08/21/17 01:19 999 MLS/HR Procedure 0117: Ordered Sodium Chloride 1,000 ml @ 999 mls/hr IV. ECG Per My Interpretation Indication: chest pain Rate (beats per minute): 63 Rhythm: normal sinus Findings: nonspecific-ST abn, no acute ischemic change, no ectopy ED Course 2340: Past medical records reviewed. The patient was evaluated in room B4B. A complete history and physical exam was performed. The patient was observed on the monitoring manager and pulse oximeter. An IV lock was initiated and labs were drawn as above. A 12-lead EKG was obtained. 0117: Ordered Sodium Chloride 1,000 ml @ 999 mls/hr IV. 0118: I reassessed the patient at this time. She still feels slightly lightheaded. 0145: I reassessed the patient at this time. She is feeling better and resting comfortably. I discussed the results and treatment plan with the patient. I answered all pertaining questions that she had. She expressed understanding and verbalized agreement. The patient will be discharged home. Medical Decision The patient is a 31 year old female who presents to the ED with lightheadedness. Differential diagnosis includes cardiac dysfunction, thyroid dysfunction, UTI, dehydration, electrolyte abnormality, and vertigo. Lab results showed: UA: 1+ ketones. Normal WBC. Stable H&H. Normal glucose. Normal TSH. Normal LFTs. Normal renal function. This is a 31-year-old female patient who presents to the emergency department after a run of PVCs with some associated lightheadedness. The patient is 12 weeks . She does have a history of PVCs and knows when she is experiencing them. She became more concerned today because the lightheadedness persisted after the palpitations had resolved. The patient was observed on the monitoring manager with no obvious PVCs while here in the emergency department. The patient did have ketonuria and was treated with IV crystalloid therapy. She seemed to be feeling somewhat better prior to discharge. She had no evidence of urinary tract infection. The patient will be discharged home to have close follow-up with OB. The patient was told return to the emergency department if she had further episodes of palpitations and/or significant dizziness or lightheadedness. Medication Reconcilliation Current Medication List: was personally reviewed by me Blood Pressure Screening Patient's blood pressure: Normal blood pressure Impression Primary Impression: Dizziness Additional Impression: PVC (premature ventricular contraction) Scribe Attestation The scribe's documentation has been prepared under my direction and personally reviewed by me in its entirety. I confirm that the note above accurately reflects all work, treatment, procedures, and medical decision making performed by me. Departure Information Dispostion Home / Self-Care Referrals Ke Mcfarland M.D.(REBECCA) Forms HOME CARE DOCUMENTATION FORM, IMPORTANT VISIT INFORMATION Patient Instructions Dehydration, ED Dizziness [place], My [facility] Additional Instructions Rest. Keep yourself well-hydrated. Follow up with OB if symptoms persist. Problem Qualifiers
[2017-08-21 01:00] LABS: EOS % 0.1 %; EOS ABS # 0.01 K/uL (0-0.5); HEMOGLOBIN 12.9 g/dL (12.0-16.0); IG# 0.01 K/uL (0.00-0.02); LYMPH % 27.9 %; LYMPH ABS # 1.92 K/uL (1.2-3.4); MEAN CORPUSCULAR HEMOGLOBIN 31.2 pg (25-34); MEAN CORPUSCULAR HGB CONC 35.8 g/dl (32-36); MEAN PLATELET VOLUME 9.4 fL (7.4-10.4); MONO % 4.6 %; MONO ABS # 0.32 K/uL (0.11-0.59); NEUT % 67.3 %; NEUT ABS # 4.63 K/uL (1.4-6.5); PLATELET COUNT 211 K/uL (130-400); RED CELL DISTRIBUTION WIDTH CV 13.2 % (11.5-14.5); WHITE BLOOD COUNT 6.89 K/uL (4.8-10.8)
[2017-08-21] MEDS ORDERED: SODIUM CHLORIDE 0.9% 1000ML 1,000 ML IV STA (01:17)
[2017-08-21 01:35] LABS: ALBUMIN 2.8 gm/dl (3.4-5.0); CALCIUM 8.3 mg/dl (8.5-10.1); CREATININE 0.66 mg/dl (0.60-1.20); POTASSIUM 3.5 mmol/L (3.5-5.1); TOTAL PROTEIN 6.8 gm/dl (6.4-8.2)
[2017-08-21 02:38] VITALS: BP 117/77; PULSE 78; O2SAT 98
== END 2017-08-21 02:28 | disposition home or self-care (01) ==
LOC: C.EDB 23:29
DX: O99.89 Other specified diseases and conditions complicating pregnancy, childbirth and the puerperium (principal); O99.711 Diseases of the skin and subcutaneous tissue complicating pregnancy, first trimester; R42 Dizziness and giddiness; I49.3 Ventricular premature depolarization; R19.7 Diarrhea, unspecified; R11.0 Nausea; R07.89 Other chest pain; R10.9 Unspecified abdominal pain; Z3A.12 12 weeks gestation of pregnancy; K90.0 Celiac disease; J45.909 Unspecified asthma, uncomplicated; Z90.49 Acquired absence of other specified parts of digestive tract; Z79.899 Other long term (current) drug therapy; Z91.018 Allergy to other foods; Z91.041 Radiographic dye allergy status; Z88.1 Allergy status to other antibiotic agents; Z88.8 Allergy status to other drugs, medicaments and biological substances

== ENCOUNTER 2019-09-26 05:32 | Inpatient (IN) ==
--- NOTE | 2019-09-23 17:33 | History & Physical Report ---
Date of Service September 23, 2019 Assessment & Plan (1) Gestational hypertension: IUP at 37 weeks with prior C/S X2 with GDM on insulin and now diagnosis of gestational hypertension the procedure and it's risks have been reviewed with Christianne and all of her questions have been answered to her satisfaction. C/S is scheduled for 09/26/19. History of Present Illness Primary Care Provider: Ke Mcfarland MD Patient is a 33 yo white female EDC 10/16/19 who presents for repeat C/S at 37 weeks because of gestational hypertension diagnosis. has also been complicated GDM on insulin. growth scans have been appropriate. NST's have been reactive. Allergies Allergy/AdvReac Type Severity Reaction Status Date / Time gluten Allergy Severe Celiac's Verified 09/23/19 13:52 Disease pineapple Allergy Severe Anaphylaxis Verified 09/23/19 13:52 wheat Allergy Severe Celiac's Verified 09/23/19 13:52 Disease Iodinated Contrast Media Allergy Intermediate ORAL AND Verified 09/23/19 13:52 IV - REACTION RASH Sulfa (Sulfonamide Allergy Intermediate HIVES Verified 09/23/19 13:52 Antibiotics) ceftriaxone Allergy Mild itching Verified 09/23/19 13:52 sumatriptan AdvReac Mild " I LOSE Verified 09/23/19 13:52 TIME" Home Medications Home Medications Medication Instructions Recorded Confirmed Type PNV cmb#95-ferrous fumarate-FA 1 tab PO HS 02/10/18 09/23/19 History [] albuterol sulfate 2 puff INHALATION Q4 PRN 02/10/18 09/23/19 History acetaminophen [Tylenol Extra 1,000 mg PO TID PRN 08/18/18 09/23/19 History Strength] acetone (urine) test #50 ea 04/14/19 09/23/19 Rx acetone (urine) test #50 ea 04/14/19 09/23/19 Rx flash glucose scanning reader #1 ea 04/14/19 09/23/19 Rx flash glucose sensor #2 ea 04/14/19 09/23/19 Rx pen needle, diabetic 32 gauge x #100 ea 04/14/19 09/23/19 Rx 5/32" cetirizine 10 mg tablet 10 mg PO HS 06/27/19 09/23/19 History blood sugar diagnostic #400 ea 06/30/19 09/23/19 Rx lancets #306 ea 06/30/19 09/23/19 Rx famotidine 20 mg tablet 20 mg PO BID PRN #60 tab 09/01/19 09/23/19 Rx insulin NPH isoph U-100 human 33 units SQ HS 09/17/19 09/23/19 History [Humulin N NPH Insulin KwikPen] epinephrine [EpiPen] 0.3 mg IM Q3H PRN 09/23/19 09/23/19 History lansoprazole [Prevacid 24Hr] 15 mg PO HS 09/23/19 09/23/19 History Patient History Medical History (Updated 09/23/19 @ 11:01 by Jina Rodney, SAM) Advanced maternal age (AMA) in Asthma STABLE Celiac disease GERD (gastroesophageal reflux disease) WITH Gestational diabetes DIET CONTROLLED History of anxiety History of depression Migraine Nausea and vomiting after administration of anesthetic agent severe--normal gets scopolamine patch Osteoarthritis PAC (premature atrial contraction) NO RECENT ISSUES Personal history of kidney stones PVC's (premature ventricular contractions) NO RECENT ISSUES Vaginal bleeding during , antepartum Surgical History (Updated 09/23/19 @ 10:44 by Jina Rodney, SAM) History of 2009= 2/2 DISTRESS; EPIDURAL WAS DOSED= "GOOD PAIN CONTROL" History of esophagogastroduodenoscopy (EGD) Hx laparoscopic cholecystectomy Hx of arthroscopy of shoulder LEFT X 3 Hx of cystoscopy with lithotripsy Hx of wisdom tooth extraction Status post repeat low transverse section Family History (Updated 09/23/19 @ 10:46 by Jina Rodney, SAM) Mother Family history of reaction to anesthesia nausea/vomiting Grandfather (Paternal) Family history of diabetes mellitus Grandmother (Paternal) Family history of diabetes mellitus Social History (System 09/23/19 @ 09:02 by Ada Hallman) Preferred Language: Icelandic Communication Ability: Effective Visual Impairment: No Limitations Hearing Ability: Normal [place] Machine Bluer Required: No Beliefs That Will Affect Care: None marital status: marital status details: Maik Shayla ( [phone] Current Living Situation: Spouse and Family Current Living Situation Comment: Lives with and 2 daughters current occupational status: employed 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 @ [employer] Feels Safe at Home: Yes Smoking Status: Never smoker Second Hand Exposure: No ; Hx Alcohol Use: Yes (prior to 1-2 drinks a week; none while ) Hx Substance Use: No Review of Systems All systems reviewed & are unremarkable except as noted in HPI & below Physical Exam Constitutional: WD/WN, vitals as above Respiratory: normal respiratory effort, lungs clear to auscultation Cardiovascular: RRR, no murmur, no edema Gastrointestinal (Abdomen): Inspection/Auscultation: + abdominal surgical scar (low transverse& well healed) Psychiatric: A+Ox3, euthymic affect Genitourinary: OB Exam Abdomen: + fundal height (36 cm) and + vertex OB Exam Monitor Tracing: + external FHT monitor used, + external uterine monitor used, + category I and + normal FHT variability reactive NST Coding Level of Care Code None Diagnoses Gestational hypertension O13.9
[2019-09-26] MEDS ORDERED: CEFAZOLIN 3,000 MG in DEXTROSE 5% 50 ML IV SCH (06:00)
[2019-09-26] MEDS ORDERED: CITRIC ACID/SODIUM CITRATE 15 ML UDC PO SCH (06:00)
[2019-09-26] MEDS ORDERED: LACTATED RINGER'S 1,000 ML IV SCH ×2 (06:00→08:45)
[2019-09-26 06:01] LABS: Eosinophils # (auto) 0.05 K/uL (0-0.5); Eosinophils % (auto) 0.7 %; Hematocrit (blood only) 36.3 % (37-47); Hemoglobin 12.2 g/dL (12.0-16.0); Immature Granulocytes # (auto) 0.01 K/uL (0.00-0.02); Immature Granulocytes % (auto) 0.1 %; Lymphocytes # (auto) 2.18 K/uL (1.2-3.4); Lymphocytes % (auto) 31.9 %; Mean Corpuscular Volume 89.4 fL (80-100); Monocytes # (auto) 0.38 K/uL (0.11-0.59); Monocytes % (auto) 5.6 %; Neutrophils # (auto) 4.21 K/uL (1.4-6.5); Neutrophils % (auto) 61.7 %; Platelet Count 187 K/uL (130-400); RDW Coefficient of Variation 12.9 % (11.5-14.5); RDW Standard Deviation 42.3 fL (36.4-46.3); Red Blood Count 4.06 M/uL (4.2-5.4); White Blood Count 6.83 K/uL (4.8-10.8)
[2019-09-26 06:29] LABS: Mean Corpuscular Hgb Conc 33.6 g/dL (32-36)
[2019-09-26] MEDS ORDERED: MoRPHine SULFATE PF 1 MG/ML 10 ML AMP/VIAL ONE (07:02)
--- NOTE | 2019-09-26 07:16 | Anesthesiology Consultation ---
Date of Service September 26, 2019 Assessment & Plan (1) Encounter for pre-operative examination: Chart Review Chart Review: Acceptable Risk for Surgery History Surgery Operation Date: 09/26/19 07:30 Proposed Procedures p Section in LD - Shell Rossi MD, FACOG Height/Weight Height: 5 ft 3 in Weight: 97.522 kg Allergies Allergy/AdvReac Type Severity Reaction Status Date / Time gluten Allergy Severe Celiac's Verified 09/23/19 13:52 Disease pineapple Allergy Severe Anaphylaxis Verified 09/23/19 13:52 wheat Allergy Severe Celiac's Verified 09/23/19 13:52 Disease Iodinated Contrast Media Allergy Intermediate ORAL AND Verified 09/23/19 13:52 IV - REACTION RASH Sulfa (Sulfonamide Allergy Intermediate HIVES Verified 09/23/19 13:52 Antibiotics) ceftriaxone Allergy Mild itching Verified 09/23/19 13:52 sumatriptan AdvReac Mild " I LOSE Verified 09/23/19 13:52 TIME" Medications Home Medications Medication Instructions Recorded Confirmed Last Taken PNV cmb#95-ferrous fumarate-FA 1 tab PO HS 02/10/18 09/26/19 09/25/19 22:00 [] albuterol sulfate 2 puff INHALATION Q4 PRN 02/10/18 09/23/19 Unknown acetaminophen [Tylenol Extra 1,000 mg PO TID PRN 08/18/18 09/23/19 09/19/19 Strength] acetone (urine) test #50 ea 04/14/19 09/23/19 Unknown acetone (urine) test #50 ea 04/14/19 09/23/19 Unknown flash glucose scanning reader #1 ea 04/14/19 09/23/19 Unknown flash glucose sensor #2 ea 04/14/19 09/23/19 Unknown pen needle, diabetic 32 gauge x #100 ea 04/14/19 09/23/19 Unknown 5/32" cetirizine 10 mg tablet 10 mg PO HS 06/27/19 09/26/19 1 Day Ago ~09/25/19 blood sugar diagnostic #400 ea 06/30/19 09/23/19 Unknown lancets #306 ea 06/30/19 09/23/19 Unknown famotidine 20 mg tablet 20 mg PO BID PRN #60 tab 09/01/19 09/26/19 09/25/19 08:00 insulin NPH isoph U-100 human 33 units SQ HS 09/17/19 09/26/19 09/25/19 22:00 [Humulin N NPH Insulin KwikPen] epinephrine [EpiPen] 0.3 mg IM Q3H PRN 09/23/19 09/23/19 Unknown lansoprazole [Prevacid 24Hr] 15 mg PO HS 09/23/19 09/26/19 09/25/19 22:00 NPO Date Last Intake of Fluids: 09/26/19 Time Last Intake of Fluids: 23:00 Date Last Intake of Solids: 09/26/19 Time Last Intake of Solids: 20:00 Past Medical History Medical History Advanced maternal age (AMA) in Asthma STABLE Celiac disease GERD (gastroesophageal reflux disease) WITH Gestational diabetes DIET CONTROLLED History of anxiety History of depression Migraine Nausea and vomiting after administration of anesthetic agent severe--normal gets scopolamine patch Osteoarthritis PAC (premature atrial contraction) NO RECENT ISSUES Personal history of kidney stones PVC's (premature ventricular contractions) NO RECENT ISSUES Vaginal bleeding during , antepartum Exercise / Class Metabolic Activity III < 4 Walking/Shop/Light housework Past Family History Family History Mother Family history of reaction to anesthesia nausea/vomiting Grandfather (Paternal) Family history of diabetes mellitus Grandmother (Paternal) Family history of diabetes mellitus Past Surgical History Surgical History History of 2009= 2/2 DISTRESS; EPIDURAL WAS DOSED= "GOOD PAIN CONTROL" 2018-repeat History of esophagogastroduodenoscopy (EGD) Hx laparoscopic cholecystectomy Hx of arthroscopy of shoulder LEFT X 3 Hx of cystoscopy with lithotripsy Hx of wisdom tooth extraction Status post repeat low transverse section Past Anesthesia History No Hx of Anesthesia Complications History of PONV No Hx of PONV and Hx of Motion Sickness Social History Smoking Status: Never smoker Do You Dip or Chew Tobacco: No Hx Alcohol Use: No Hx Substance Use: No substance use type: does not use Physical Exam Vital Signs Last Vital Signs Temp 36.8 C 09/26/19 05:44 Pulse 70 09/26/19 07:11 Resp 18 09/26/19 05:44 BP 157/95 H 09/26/19 07:11 Testing Laboratory Results 09/26/19 05:43
--- NOTE | 2019-09-26 07:20 | History & Physical Bridge Note ---
Date of Service September 26, 2019 History & Physical Bridge Note I have examined the patient, reviewed the History & Physical and in the interval since the performance of the History & Physical I have noted the following changes of clinical significance: no changes noted
[2019-09-26] MEDS ORDERED: ONDANSETRON INJ 2 MG/ML 2 ML VIAL IV PRN (07:56)
[2019-09-26] MEDS ORDERED: NALOXONE HCL 0.08 MG in SYRINGE 1.8 ML IV PRN (07:56)
[2019-09-26] MEDS ORDERED: NALOXONE HCL 0.4 MG/1 ML VIAL/CARP IV PRN (07:56)
[2019-09-26] MEDS ORDERED: NALOXONE HCL 1 MG in SODIUM CHLORIDE 0.9% 1000ML 1,000 ML IV PRN (07:56)
[2019-09-26] MEDS ORDERED: ePHEDrine sulfate 50 MG/ML AMP IV PRN (07:56)
[2019-09-26] MEDS ORDERED: LACTATED RINGER'S 500 ML IV PRN (07:56)
[2019-09-26] MEDS ORDERED: NALBUPHINE HCL INJ 10 MG/ML AMP IV PRN (07:56)
[2019-09-26] MEDS ORDERED: DiphenhydrAMINE HCL 50 MG/ML VIAL IV PRN (07:56)
[2019-09-26] MEDS ORDERED: PROMETHAZINE HCL 12.5 MG in SODIUM CHLORIDE 0.9% 50 ML IV PRN (07:56)
[2019-09-26] MEDS ORDERED: MoRPHine SULFATE PF 1 MG/ML 10 ML AMP/VIAL INT SPINAL ONE (07:56)
[2019-09-26] MEDS ORDERED: NO NARCOTICS OR SEDATIVES SCH (08:00)
[2019-09-26] MEDS ORDERED: DC INTRASPINAL MORPHINE SCH (08:00)
[2019-09-26] MEDS ORDERED: SODIUM CHLORIDE 0.9% 1000ML 1,000 ML IV SCH (08:00)
[2019-09-26] MEDS ORDERED: METOCLOPRAMIDE HCL INJ 5 MG/ML 2 ML VIAL ONE (08:10)
[2019-09-26] MEDS ORDERED: OXYTOCIN 10 UNITS/ML VIAL ONE (08:10)
[2019-09-26] MEDS ORDERED: PHENYLEPHRINE 100MCG/ML 5ML SYR ONE (08:10)
[2019-09-26] MEDS ORDERED: LIDOCAINE HCL 2% MPF (LOCAL) 5 ML VIAL INFIL ONE (08:10)
[2019-09-26] MEDS ORDERED: ONDANSETRON INJ 2 MG/ML 2 ML VIAL ONE (08:10)
[2019-09-26] MEDS ORDERED: PROPOFOL IV EMULSION 10 MG/ML 20 ML VIAL IV ONE (08:10)
[2019-09-26] MEDS ORDERED: ePHEDrine sulfate 50 MG/ML SYR ONE (08:10)
[2019-09-26] MEDS ORDERED: MAGNESIUM HYDROXIDE SUSP 30 ML UDC PO PRN (08:29)
[2019-09-26] MEDS ORDERED: HYDROCORTISONE ACETATE 25 MG SUPP PR PRN (08:29)
[2019-09-26] MEDS ORDERED: DIPHTHERIA/TETANUS/PERTUSSIS 0.5 ML SYR/VIAL IM ONE (08:29)
[2019-09-26] MEDS ORDERED: SUPERCREAM 0.870% 15 GM JAR EXT PRN (08:29)
[2019-09-26] MEDS ORDERED: SENNA 8.6 MG TAB PO PRN (08:29)
[2019-09-26] MEDS ORDERED: BENZOCAINE 20% AER SPR 82.5 GM CAN EXT PRN (08:29)
--- NOTE | 2019-09-26 08:36 | Post Operative Brief Note ---
PG Immediate Post Op with CF Date of Surgery September 26, 2019 Pre & Post Diagnosis Operation Date: 09/26/19 07:30 Pre-Op Diagnosis: intrauterine section x2 desires repeat section Post-Op Diagnosis: low transverse uterine section for viable male at 0802 I identified the patient and participated in the time-out.: Yes Procedure Operation Date: 09/26/19 07:30 Actual Procedures p Section in LD for viable male at 0802(Bilateral) - Shell Rossi MD, FACOG Surgeon Shell Rossi MD, FACOG Visual C Developer Santy Polo MD Estimated Blood Loss 600 Findings Consistent with Post-Op Diagnosis Specimens Specimen Description: cord blood placenta-hold Drains Ornelas Catheter
[2019-09-26] MEDS: KETOROLAC 30 MG/ML VIAL IV PRN ×3 (09:05→22:17)
[2019-09-26] MEDS: MEPERIDINE HCL 25 MG/ML CARP/VIAL IV PRN ×6 (09:30→22:18)
[2019-09-26] MEDS ORDERED: ACETAMINOPHEN 500 MG TAB PO PRN (10:03)
[2019-09-26] MEDS ORDERED: FAMOTIDINE 20 MG TAB PO PRN (10:03)
[2019-09-26] MEDS ORDERED: ALBUTEROL HFA 8 GM INHALER INH PRN (10:03)
--- NOTE | 2019-09-26 10:23 | Operative Report (OR) ---
DATE OF OPERATION: 09/26/2019 SURGEON: Shell Meyer MD. UPPER SHAPER: Santy Polo and Rudy Villa, PGY1. PREOPERATIVE DIAGNOSES: Intrauterine at 37 weeks, gestational hypertension, prior section x2. POSTOPERATIVE DIAGNOSES: Same plus delivery of a viable male , 6 pounds 1 ounce, Apgars 8 and 8. PROCEDURE: Repeat low transverse section. BLOOD LOSS: 600 mL ANESTHESIA: Spinal. HISTORY: The patient is a 33-year-old white female G3, P2-0-0-2, EDC of 10/16/2019 who presents for repeat section at 37 weeks. Her section had been originally scheduled for 39 weeks, but because of the development of gestational hypertension diagnosis the section was moved to 37 weeks. She understands the risks of procedure and is willing to proceed. GROSS FINDINGS: Uterus is gravid and consistent with a term in size. Bilateral ovaries and both fallopian tubes were grossly normal. DESCRIPTION OF PROCEDURE: After the patient received adequate subarachnoid block, she was prepped and draped in usual sterile fashion. A low transverse skin incision was made through her prior scar and carried to the fascia with the same scalpel. The fascial incision was then extended with Tello scissors and the edges were then grasped with Roger clamps and the underlying rectus muscle was bluntly and sharply dissected off the overlying fascia. The peritoneum was then entered bluntly. The bladder was then taken down off the anterior surface of the uterus with Metzenbaum scissors and placed behind the bladder blade. The lower uterine segment was entered with the scalpel and extended transversely to the level of the membranes. Membranes were then ruptured for clear fluid. The was delivered from the vertex presentation with moderate fundal pressure. There was spontaneous crying and the infant was moving all 4 limbs upon delivery. The cord was clamped and cut and the infant was handed off to Dr. Monique who was in attendance as weatherization technician. The placenta was then expressed intact with a 3-vessel cord. The uterus was then exteriorized and covered with a clean lap sponge. Uterine cavity was explored and found to be free of any placental membranes or tissue. The uterus was then closed in 2 layers in a running locking imbricating fashion with 0 Monocryl. Hemostasis was noted to be excellent. Posterior cul-de-sac was irrigated for a small amount of normal saline. The anterior cul-de-sac was also irrigated after placing the uterus back inside the abdominal cavity. The incision was examined once more. A few bleeding sites along the bladder flap were secured with the Bovie. The gutters were cleared of any fluid or clot. The rectus muscles were brought together on the midline with individual stitches of 0 Monocryl. The fascia was closed in a running fashion with 0 Vicryl. After irrigating the adipose layer, the skin was closed in a subcuticular fashion with 4-0 Vicryl. Urine was clear at the end of the case. Mother and were doing well after delivery. There was very minimal adhesions present from her prior sections. I attest to the content of the Intraoperative Record and any orders documented therein. Any exception s are noted below.
[2019-09-26] MEDS ORDERED: PHARMACY GLYCEMIC MGMT CONSULT PRN (10:47)
[2019-09-26] MEDS ORDERED: INSULIN ASPART 100 UNITS/ML 3 ML PEN SC SCH ×3 (11:30→13:00)
[2019-09-26] MEDS ORDERED: GLUCOSE 40% GEL 15 GM TUBE PO PRN (12:00)
[2019-09-26] MEDS ORDERED: GLUCOSE 10 TABS/TUBE PO PRN (12:00)
[2019-09-26] MEDS ORDERED: GLUCAGON FOR INJ 1 MG VIAL IM PRN (12:00)
[2019-09-26] MEDS ORDERED: CARBOHYDRATES FOR HYPOGLYCEMIA PO PRN (12:00)
[2019-09-26] MEDS ORDERED: DEXTROSE 50% 50 ML SYRINGE IV PRN (12:00)
[2019-09-26] MEDS: SIMETHICONE 80 MG CHEW PO SCH ×3 (14:35→20:48)
--- NOTE | 2019-09-26 14:50 | Anesthesiology Progress Note ---
Date of Service September 26, 2019 Anesthesia Post Procedure Vital Signs Vital Signs: Temp Pulse Resp BP Pulse Ox 09/26/19 11:47 78 136/63 09/26/19 11:43 61 100 09/26/19 11:38 65 100 09/26/19 11:37 55 L 142/67 H 09/26/19 11:33 61 100 09/26/19 11:28 61 100 09/26/19 11:27 58 L 121/67 09/26/19 11:23 59 L 100 09/26/19 11:18 69 100 09/26/19 11:17 68 133/73 09/26/19 11:13 56 L 100 09/26/19 11:08 61 100 09/26/19 11:07 59 L 132/74 09/26/19 11:03 58 L 100 09/26/19 10:58 64 100 09/26/19 10:57 54 L 140/78 09/26/19 10:53 60 100 09/26/19 10:48 66 100 09/26/19 10:47 57 L 132/72 09/26/19 10:45 64 18 132/72 100 09/26/19 10:43 69 100 09/26/19 10:38 66 100 09/26/19 10:37 61 148/89 H 09/26/19 10:36 67 91 09/26/19 10:33 59 L 100 09/26/19 10:29 75 135/75 09/26/19 10:28 67 100 09/26/19 10:23 57 L 100 09/26/19 10:18 68 98 09/26/19 10:17 63 149/71 H 09/26/19 10:15 36.4 C L 63 18 149/71 H 98 09/26/19 10:13 60 99 09/26/19 10:08 56 L 98 09/26/19 10:07 50 L 140/69 09/26/19 10:03 53 L 98 09/26/19 09:58 59 L 100 09/26/19 09:57 55 L 131/66 09/26/19 09:53 58 L 99 09/26/19 09:48 64 99 09/26/19 09:47 55 L 135/79 09/26/19 09:45 55 L 18 135/79 99 09/26/19 09:43 62 97 09/26/19 09:38 61 97 09/26/19 09:37 55 L 150/79 H 09/26/19 09:35 55 L 18 150/79 H 97 09/26/19 09:33 66 97 09/26/19 09:28 63 99 09/26/19 09:27 56 L 130/68 09/26/19 09:25 56 L 18 130/68 99 09/26/19 09:23 61 98 09/26/19 09:18 60 99 09/26/19 09:17 66 142/75 H 09/26/19 09:15 65 18 142/75 H 99 09/26/19 09:13 79 99 09/26/19 09:12 60 145/75 H 09/26/19 09:08 63 97 09/26/19 09:07 58 L 142/74 H 09/26/19 09:05 61 18 142/74 H 98 09/26/19 09:03 61 98 09/26/19 08:58 63 98 09/26/19 08:55 81 18 129/76 99 09/26/19 08:53 64 99 09/26/19 08:51 81 129/76 09/26/19 08:48 67 99 09/26/19 08:45 36.4 C L 65 18 128/71 99 09/26/19 08:43 63 99 09/26/19 08:41 65 128/71 09/26/19 07:12 36.5 C 70 18 157/95 H 09/26/19 07:11 70 157/95 H 09/26/19 06:22 71 129/87 09/26/19 05:44 36.8 C 18 09/26/19 05:42 91 H 143/94 H Pain Intensity Lower Medial Abdomen: Pain Intensity: 3 Transfer of Care Handoff Completed per policy Notes Mental Status: alert / awake / arousable Patient Amnestic to Procedure: Yes Nausea / Vomiting: adequately controlled Pain: adequately controlled Airway Patency, RR, SpO2: stable & adequate BP & HR: stable & adequate Hydration State: stable & adequate Neuraxial Anesthesia: was administered and sensory block is resolving Anesthetic Complications: no major complications apparent
[2019-09-26] MEDS: DOCUSATE SODIUM 100 MG CAP PO SCH (20:48)
[2019-09-26] MEDS ORDERED: INSULIN HUMAN NPH SC SCH (21:00)
[2019-09-26] MEDS ORDERED: PANTOprazole 40 MG TAB PO SCH (21:00)
[2019-09-26] MEDS ORDERED: CETIRIZINE HCL 10 MG TABLET PO SCH (21:00)
[2019-09-26] MEDS ORDERED: NON-FORMULARY MEDICATION (Pnv Cmb#95-Ferrous Fumarate-Fa [Prenatal] 1 TAB) PO SCH (21:00)
[2019-09-26] MEDS ORDERED: OXYTOCIN 20 UNITS in LACTATED RINGER'S 1,000 ML IV SCH (21:30)
[2019-09-27] MEDS: MEPERIDINE HCL 25 MG/ML CARP/VIAL IV PRN (00:30)
[2019-09-27] MEDS ORDERED: DiphenhydrAMINE HCL 50 MG/ML VIAL IV PRN (02:00)
[2019-09-27] MEDS ORDERED: KETOROLAC 30 MG/ML VIAL IV PRN (02:00)
[2019-09-27] MEDS ORDERED: PROMETHAZINE HCL 25 MG in SODIUM CHLORIDE 0.9% 50 ML IV PRN (02:00)
[2019-09-27] MEDS ORDERED: ONDANSETRON INJ 2 MG/ML 2 ML VIAL IV PRN (02:00)
[2019-09-27] MEDS: IBUPROFEN 600 MG TAB PO PRN ×2 (05:05→10:30)
[2019-09-27] MEDS: OXYCODONE/ACETAMINOPHEN 5mg/325mg TAB PO PRN ×3 (05:06→12:16)
[2019-09-27 06:56] LABS: Eosinophils # (auto) 0.04 K/uL (0-0.5); Eosinophils % (auto) 0.5 %; Hematocrit (blood only) 35.4 % (37-47); Hemoglobin 12.2 g/dL (12.0-16.0); Immature Granulocytes # (auto) 0.02 K/uL (0.00-0.02); Immature Granulocytes % (auto) 0.3 %; Lymphocytes # (auto) 1.87 K/uL (1.2-3.4); Lymphocytes % (auto) 23.6 %; Mean Corpuscular Hemoglobin 30.4 pg (25-34); Mean Corpuscular Hgb Conc 34.5 g/dL (32-36); Mean Corpuscular Volume 88.3 fL (80-100); Mean Platelet Volume 10.7 fL (7.4-10.4); Monocytes # (auto) 0.24 K/uL (0.11-0.59); Neutrophils # (auto) 5.76 K/uL (1.4-6.5); Neutrophils % (auto) 72.6 %; Platelet Count 171 K/uL (130-400); RDW Coefficient of Variation 13.1 % (11.5-14.5); RDW Standard Deviation 42.3 fL (36.4-46.3); Red Blood Count 4.01 M/uL (4.2-5.4); White Blood Count 7.93 K/uL (4.8-10.8)
--- NOTE | 2019-09-27 07:34 | Obstetrical Progress Note ---
Date of Service September 27, 2019 Assessment & Plan (1) Encounter for care and examination after delivery: satisfactory post-op course BP's normalizing- continue to monitor Day #:: 1 Subjective Ambulation: ambulating normally Voiding: no voiding problems Passing Gas:: Yes Diet Tolerance:: regular diet Lochia:: Small Feeding Type:: breast feeding baby on Level 2 bed. headache she has had for the past 2 weeks has now resolved. pain meds working. Review of Systems All systems reviewed & are unremarkable except as noted in HPI & below Physical Exam Constitutional WD/WN, vitals as above Gastrointestinal (Abdomen) Inspection/Auscultation: + abdominal surgical incision (intact & dry, no redness) Psychiatric A+Ox3, euthymic affect Genitourinary OB Exam Abdomen: + fundal height Fundus: + firm and + relation to umbilicus (at U) Results & Data ([facility]) Vital Signs (Past 12 Hours) Vital Signs Temp Pulse Resp BP Pulse Ox 09/27/19 04:45 97.9 F 62 16 131/84 09/27/19 01:30 18 98 09/27/19 00:20 98.6 F 64 16 125/81 99 09/26/19 23:30 16 98 09/26/19 22:30 18 99 09/26/19 21:30 18 99 09/26/19 20:30 18 99
[2019-09-27] MEDS ORDERED: PRENATAL VITAMIN 1 TAB PO SCH (08:00)
[2019-09-27] MEDS ORDERED: FERROUS SULFATE 325 MG TAB PO SCH (08:00)
[2019-09-27] MEDS: DOCUSATE SODIUM 100 MG CAP PO SCH (08:31)
[2019-09-27] MEDS: SIMETHICONE 80 MG CHEW PO SCH ×2 (08:31→12:16)
[2019-09-27] MEDS ORDERED: bisacodyL 5 MG TABEC PO SCH (20:00)
[2019-09-28] MEDS ORDERED: bisacodyL 10 MG SUPP PR PRN ×2 (08:29)
--- NOTE | 2019-09-30 14:04 | Discharge Summary (DS) ---
PRINCIPAL DIAGNOSIS: Intrauterine at 37 weeks, gestational hypertension diagnosis and prior section x2. PRINCIPAL PROCEDURE: Repeat low transverse section. HISTORY: The patient is a 33-year-old 3, para 2-0-0-2, white female, EDC of 10/16/2019 who presented for repeat section at 37 weeks. Her section had been originally scheduled for 39 weeks, but because of the development of gestational hypertension, the section was moved up to the 37th week. She underwent the section without any complications. She had had a frontal headache for 2 weeks prior to the section and this resolved shortly after her surgery. She remained afebrile throughout her hospital course. The baby, however, was on a level 2 nursery bed and was then transferred out for further care on her first postop day and she requested discharge at that time. Blood pressures had normalized after delivery with a high of 131/84 to a low of 120/83. Hemoglobin on admission was 12.2, hematocrit 36.3. First postop day hemoglobin 12.2, hematocrit 35.4. She was sent home in good condition with prescriptions for Percocet 1-2 tablets p.o. q.4 hours p.r.n. pain and Motrin 600 mg p.o. q.6 hours p.r.n. pain. She is to call for a temperature of 101 degrees or higher, heavy vaginal bleeding, burning with urination, increased redness, drainage or pain in her incision, calf tenderness, recurrence of her headache, epigastric pain or significant swelling. She is to be seen in the office in 2 weeks for blood pressure check.
== END 2019-09-27 12:50 | disposition home or self-care (01) | DRG 788 ==
LOC: 4S1 05:32 → 4S2 12:43 → EDSTATUS 10-10 07:30

== ENCOUNTER 2022-05-14 05:33 | Inpatient (IN) ==
--- NOTE | 2022-05-13 11:48 | Anesthesiology Consultation ---
Date of Service May 13, 2022 Assessment & Plan (1) Encounter for pre-operative examination: - COVID screening: Per mental health technician on 05/13/2022: Travel screen negative, no known COVID-19 positive contacts or current COVID-19 related symptoms in past 2 weeks. To surgeon's discretion if preop COVID testing is needed. Chart Review Chart Review: Acceptable Risk for Surgery and Patient NOT seen in Pre Admission Testing History Surgery Operation Date: 05/14/22 07:30 Proposed Procedures p Section (Delivery of Baby Through Abdominal Incision) In LD - Ada Andersno MD Height/Weight Height: 5 ft 3 in Weight: 96.071 kg Allergies Allergy/AdvReac Type Severity Reaction Status Date / Time gluten Allergy Severe Celiac's Verified 05/13/22 10:48 Disease pineapple Allergy Severe Anaphylaxis Verified 05/13/22 10:48 wheat Allergy Severe Celiac's Verified 05/13/22 10:48 Disease Iodinated Contrast Media Allergy Intermediate ORAL AND Verified 05/13/22 10:48 IV - REACTION RASH Sulfa (Sulfonamide Allergy Intermediate HIVES Verified 05/13/22 10:48 Antibiotics) ceftriaxone Allergy Mild itching Verified 05/13/22 10:48 sumatriptan AdvReac Mild " I LOSE Verified 05/13/22 10:48 TIME" Medications Home Medications Medication Instructions Recorded Confirmed Last Taken albuterol sulfate 90 mcg/actuation 2 puff inhalation Q4 PRN ASTHMA 02/10/18 05/13/22 Unknown aerosol inhaler SYMPTOMS acetaminophen 500 mg tablet 1,000 mg PO TID PRN Pain 08/18/18 05/13/22 09/19/19 (Tylenol Extra Strength) epinephrine 0.3 mg/0.3 mL 0.3 mg IM Q3H PRN Anaphylaxis 09/23/19 05/13/22 Unknown injection, auto-injector (EpiPen) famotidine 20 mg tablet (Pepcid) 20 mg PO BID PRN heartburn #60 tabs 11/07/19 05/13/22 Unknown onabotulinumtoxinA 200 unit 200 unit IM .Q3MO 05/18/21 05/13/22 03/18/21 solution for injection (Botox) insulin NPH isoph U-100 human 100 10 unit (0.1 mL) subcut QPM #15 mL 10/14/21 05/13/22 Unknown unit/mL (3 mL) subcutaneous pen (Novolin N FlexPen) pen needle, diabetic 32 gauge x #100 ea 10/14/21 05/13/22 Unknown 532" (BD Ultra-Fine [place] Pen Needle) folic acid 400 mcg tablet 0.4 mg PO DAILY 10/16/21 05/13/22 Unknown prenat.vits,ventura,npz-nzkj-ricyg 1 tab PO HS 10/16/21 05/13/22 Unknown valacyclovir 500 mg tablet 500 mg PO HS preventative for cold 10/16/21 05/13/22 Unknown sores acetone (urine) test (Ketone Urine #50 ea 11/22/21 05/13/22 Unknown Test strips) blood sugar diagnostic (Accu-Chek #300 ea 12/10/21 05/13/22 Unknown Guide test strips) insulin aspart U-100 100 unit/mL 5 unit (0.05 mL) subcut TID #15 mL 12/10/21 05/13/22 Unknown (3 mL) subcutaneous pen (Novolog FlexPen U-100 Insulin aspart) breast pump #1 ea 04/04/22 05/13/22 Unknown breast pump #1 ea 04/04/22 05/13/22 Unknown aspirin 81 mg tablet,delayed 81 mg PO HS 05/05/22 05/13/22 Unknown release (Adult Low Dose Aspirin) lansoprazole 15 mg capsule,delayed 15 mg PO HS 05/13/22 05/13/22 Unknown release Past Medical History Medical History (Updated 05/13/22 @ 11:46 by Sharyn Del Angel PA-C) Advanced maternal age (AMA) in Asthma STABLE Celiac disease Elevated BP without diagnosis of hypertension GERD (gastroesophageal reflux disease) WITH Gestational diabetes novolin N HS only. not taking novolog recently. Gestational hypertension began a couple weeks ago. History of anxiety History of COVID-19 home test positive September 2021. mild cold symptoms. no current issues History of depression Migraine Nausea and vomiting after administration of anesthetic agent severe--normal gets scopolamine patch Osteoarthritis PAC (premature atrial contraction) NO RECENT ISSUES Personal history of kidney stones depression with 1st PVC's (premature ventricular contractions) NO RECENT ISSUES Vaginal bleeding during , antepartum hx - small amount of spotting at the beginning of Past Family History Family History Mother Family history of reaction to anesthesia nausea/vomiting Dyslipidemia Hypertension Grandfather (Paternal) Family history of diabetes mellitus Heart disease Hypertension Grandmother (Paternal) Family history of diabetes mellitus Heart disease Hypertension Father Dyslipidemia Hypertension Other Diabetes Past Surgical History Surgical History (Updated 05/13/22 @ 11:46 by Sharyn Del Angel PA-C) History of 2009= 2/2 DISTRESS; EPIDURAL WAS DOSED= "GOOD PAIN CONTROL" 2018-repeat. 02/24/18 SAB L3-L4 1 attempt. History of esophagogastroduodenoscopy (EGD) Hx laparoscopic cholecystectomy Hx of arthroscopy of shoulder LEFT X 3 Hx of cystoscopy with lithotripsy Hx of wisdom tooth extraction Status post repeat low transverse section Social History Smoking Status: Never smoker Do You Dip or Chew Tobacco: No Hx Alcohol Use: No Hx Substance Use: No substance use type: does not use Lab Results Anesthesia Preop Results Results Anesthesia Widget: WBC 6.36 K/ul (4.8-10.8) 05/12/22 Hgb 11.1 g/dl (12.0-16.0) L 05/12/22 Hct 32.2 % (37.0-47.0) L 05/12/22 Plt 186 K/uL (130-400) 05/12/22 Na 135 mmol/L (136-145) L 05/12/22 K 3.9 mmol/L (3.5-5.1) 05/12/22 Cl 108 mmol/L (98-107) H 05/12/22 CO2 20 mmol/L (21-32) L 05/12/22 BUN 9 mg/dl (6-23) 05/12/22 Creat 0.57 mg/dl (0.6-1.2) L 05/12/22 Glucose Level 75 mg/dl (70-99(Fasting)) 05/12/22 Testing Electrocardiogram Date: 02/10/22 NSR, rate 84 bpm
[2022-05-14] MEDS ORDERED: CLINDAMYCIN/D5W 900 MG/50 ML BAG IV SCH (06:00)
[2022-05-14] MEDS ORDERED: LACTATED RINGER'S 1,000 ML IV SCH ×2 (06:00→10:58)
[2022-05-14] MEDS ORDERED: CITRIC ACID/SODIUM CITRATE 15 ML UDC PO SCH (06:00)
[2022-05-14] MEDS ORDERED: SODIUM CHLORIDE 0.9% 250 ML IV PRN (06:13)
[2022-05-14 06:21] LABS: Eosinophils # (auto) 0.08 K/uL (0-0.50); Eosinophils % (auto) 1.2 %; Hemoglobin 10.9 g/dl (12.0-16.0); Immature Granulocytes # (auto) 0.03 K/uL (0.01-0.20); Immature Granulocytes % (auto) 0.4 %; Lymphocytes # (auto) 1.96 K/uL (1.2-3.4); Lymphocytes % (auto) 28.8 %; Mean Corpuscular Hemoglobin 30.3 pg (25.0-34.0); Mean Corpuscular Hgb Conc 34.1 g/dL (32.0-36.0); Mean Corpuscular Volume 88.9 fL (80.0-100.0); Mean Platelet Volume 11.5 fL (9.4-12.4); Monocytes % (auto) 4.4 %; Neutrophils # (auto) 4.44 K/uL (1.40-6.50); Neutrophils % (auto) 65.2 %; Platelet Count 185 K/uL (130-400); RDW Standard Deviation 42.2 fL (36.4-46.3); White Blood Count 6.81 K/ul (4.8-10.8)
[2022-05-14 06:58] LABS: Appearance Urine Cloudy (Clear); Bacteria Urine Automated 3+ (Negative); Bilirubin Urine Negative (Negative); Blood Urine Negative (Negative); Color Urine Yellow; Epithelial Cell Urine Auto >30 /lpf (0-5); Glucose Urine UA Negative (Negative); Ketones Urine 1+ (Negative); Leukocyte Esterase Urine Trace (Negative); Nitrite Urine Negative (Negative); Protein Urine Negative (Negative); RBC Urine Automated 0-4 /hpf (0-4); Specific Gravity Urine 1.017 (1.000-1.030); Urobilinogen Urine Negative (Negative); pH Urine 5.5 (4.5-7.5)
--- NOTE | 2022-05-14 07:05 | History & Physical Bridge Note ---
Date of Service May 14, 2022 History & Physical Bridge Note I have examined the patient, reviewed the History & Physical and in the interval since the performance of the History & Physical I have noted the following changes of clinical significance: no changes noted
[2022-05-14] MEDS ORDERED: LACTATED RINGER'S 500 ML IV PRN (07:25)
[2022-05-14] MEDS ORDERED: NALBUPHINE HCL INJ 10 MG/ML AMP IV PRN (07:25)
[2022-05-14] MEDS ORDERED: ONDANSETRON INJ 2 MG/ML 2 ML VIAL IV PRN (07:25)
[2022-05-14] MEDS ORDERED: NALOXONE HCL 1 MG in SODIUM CHLORIDE 0.9% 1000ML 1,000 ML IV PRN (07:25)
[2022-05-14] MEDS ORDERED: diphenhydrAMINE 50 MG/ML VIAL IV PRN (07:25)
[2022-05-14] MEDS ORDERED: MoRPHine SULFATE PF 1 MG/ML 10 ML AMP/VIAL INT SPINAL ONE (07:25)
[2022-05-14] MEDS ORDERED: NALOXONE HCL 0.4 MG/1 ML VIAL/CARP IV PRN (07:25)
[2022-05-14] MEDS ORDERED: PROMETHAZINE HCL 6.25 MG in SODIUM CHLORIDE 0.9% 50 ML IV PRN (07:25)
[2022-05-14] MEDS ORDERED: MEPERIDINE HCL 25 MG/ML CARP/VIAL IV PRN (07:25)
[2022-05-14] MEDS ORDERED: NALOXONE HCL 0.08 MG in SYRINGE 1.8 ML IV PRN (07:25)
[2022-05-14] MEDS ORDERED: ePHEDrine sulfate 50 MG/ML AMP IV PRN (07:25)
[2022-05-14] MEDS ORDERED: DC INTRASPINAL MORPHINE SCH (07:30)
[2022-05-14] MEDS ORDERED: SODIUM CHLORIDE 0.9% 1000ML 1,000 ML IV SCH (07:30)
[2022-05-14] MEDS ORDERED: NO NARCOTICS OR SEDATIVES SCH (07:30)
[2022-05-14] MEDS ORDERED: MoRPHine SULFATE PF 1 MG/ML 10 ML AMP/VIAL ONE (07:33)
[2022-05-14] MEDS ORDERED: OXYTOCIN 10 UNITS/ML 10ML VIAL ONE (07:55)
[2022-05-14] MEDS ORDERED: KETOROLAC 30 MG/ML VIAL ONE (07:55)
[2022-05-14] MEDS ORDERED: ONDANSETRON INJ 2 MG/ML 2 ML VIAL ONE (07:55)
[2022-05-14] MEDS ORDERED: PHENYLEPHRINE 100MCG/ML 5ML SYR ONE (08:18)
--- NOTE | 2022-05-14 08:56 | Anesthesiology Progress Note ---
Date of Service May 14, 2022 Anesthesia Post Procedure Vital Signs Vital Signs: Temp Pulse Resp BP Pulse Ox O2 Del Method 05/14/22 08:50 72 132/76 100 05/14/22 07:11 36.5 C 81 18 140/90 05/14/22 05:52 90 140/95 05/14/22 06:00 36.8 C 18 Room Air Transfer of Care Handoff Completed per policy Notes Mental Status: alert / awake / arousable Nausea / Vomiting: adequately controlled Pain: adequately controlled Airway Patency, RR, SpO2: stable & adequate BP & HR: stable & adequate Hydration State: stable & adequate Neuraxial Anesthesia: was administered and sensory block is resolving Anesthetic Complications: no major complications apparent and Pt Satisfied with anesthetic care
--- NOTE | 2022-05-14 08:58 | Operative Report ---
PG Post Operative Report Pre & Post Diagnosis Operation Date: 05/14/22 07:30 Pre-Op Diagnosis: History of Section Post-Op Diagnosis: History of Section I identified the patient and participated in the time-out.: Yes Procedure Operation Date: 05/14/22 07:30 Actual Procedures Repeat Low Transverse Section Surgeon Ada Anderson MD Wallpaper Printer DO Gracie Estimated Blood Loss 500 Findings Consistent with Post-Op Diagnosis Specimens Placenta, cord blood Anesthesia Type Spinal Complications none Disposition Accompanied Patient To Recovery: Yes Disposition: L&D Description of Procedure The patient was placed operating table in the supine position with a leftward tilt. She was prepped and draped in standard sterile fashion. The anesthetic was tested and found to be adequate. A time-out was held, identifying correct patient, procedure, positioning and preoperative antibiotics. There were no concerns. A Pfannenstiel skin incision was made with a knife and taken down to the underlying layer of fascia. The fascia was incised in the midline with the knife and taken out laterally with scissors. The superior edge of the fascial incision was grasped, elevated and dissected off the underlying rectus both superiorly and inferiorly. The muscles were bluntly in the midline. The peritoneum was entered bluntly. The incision was then stretched. The bladder retractor was placed. The vesicouterine peritoneum was identified, entered with scissors and taken out laterally with scissors. The bladder flap was created digitally. A hysterotomy incision was created transversely in the lower uterine segment, final entry being accomplished in a blunt manner with the webfed offset press operator's fingers. Clear amniotic fluid was encountered. The webfed offset press operator's hand was used to elevate the head to the hysterotomy. The head was delivered using mild fundal pressure, and the shoulders and body followed without difficulty. The cord was clamped and cut and the was then handed off to the awaiting production drilling machine operator. Cord blood was obtained. The placenta was Manually extracted. The uterus was exteriorized and cleared of all clot and debris with moistened laparotomy sponges. The hysterotomy incision was repaired in two layers, the first in a running locked layer, the second in an imbricating layer. An additional figure of eight 0-vicryl suture was used to secure bleeding from an aberrant branch of the uterine artery on the left portion of the lower uterine segment, with good hemostasis. The ovaries and tubes were seen to be normal bilaterally. The uterus was gently replaced in the abdomen, and the gutters were cleared of clot and debris. A final inspection of the hysterotomy revealed good hemostasis. The rectus muscles were allowed to reapproximate naturally. The fascia was then reapproximated with 1 Vicryl in a running nonlocked manner. The fascia was examined and found to be free of defect following closure. The subcutaneous tissue was copiously irrigated and reapproximated with 0-chromic, then the skin edges were closed with 4-0 monocryl in a subcuticular fashion. A dermabond dressing was applied. The bledsoe was found to be draining clear yellow urine at completion of the procedure. I attest to the content of the Intraoperative Record and any orders documented therein. Any exceptions are noted below. I attest to the content of the Intraoperative Record and any orders documented therein. Any exceptions are noted below.
[2022-05-14] MEDS: MoRPHine SULFATE 2 MG/ML CARP IV PRN ×3 (09:11→18:13)
[2022-05-14] MEDS: HYDROmorphone INJ 0.5 MG/0.5 ML SYR IV PRN ×2 (09:50→19:42)
[2022-05-14] MEDS ORDERED: HYDROCORTISONE ACETATE 25 MG SUPP PR PRN (10:58)
[2022-05-14] MEDS ORDERED: MAGNESIUM HYDROXIDE SUSP 30 ML UDC PO PRN (10:58)
[2022-05-14] MEDS ORDERED: FAMOTIDINE 20 MG TAB PO PRN (10:58)
[2022-05-14] MEDS ORDERED: ALBUTEROL HFA 8 GM INHALER INH PRN (10:58)
[2022-05-14] MEDS ORDERED: DIPHTHERIA/TETANUS/PERTUSSIS 0.5mL SYR/VIAL (Age 7+yrs) IM ONE (10:58)
[2022-05-14] MEDS ORDERED: BENZOCAINE 20% AER SPR 82.5 GM CAN EXT PRN (10:58)
[2022-05-14] MEDS ORDERED: SENNA 8.6 MG TAB PO PRN (10:58)
[2022-05-14] MEDS ORDERED: EPINEPHrine INJ 1 MG/ML AMP IM PRN (11:36)
[2022-05-14] MEDS ORDERED: OXYTOCIN 30 UNITS in LACTATED RINGER'S 1,000 ML IV SCH (11:45)
[2022-05-14] MEDS ORDERED: PROMETHAZINE HCL 6.25 MG in SODIUM CHLORIDE 0.9% 50 ML IV STA (13:04)
[2022-05-14] MEDS: SIMETHICONE 80 MG CHEW PO SCH ×3 (13:08→20:54)
[2022-05-14] MEDS: KETOROLAC 30 MG/ML VIAL IV PRN ×2 (14:33→22:58)
[2022-05-14] MEDS: DOCUSATE SODIUM 100 MG CAP PO SCH (20:59)
[2022-05-14] MEDS ORDERED: PANTOprazole 40 MG TAB PO SCH (21:00)
[2022-05-15] MEDS ORDERED: KETOROLAC 30 MG/ML VIAL IV PRN (01:26)
[2022-05-15] MEDS ORDERED: diphenhydrAMINE 50 MG/ML VIAL IV PRN (01:26)
[2022-05-15] MEDS ORDERED: diphenhydrAMINE Capsule 25 MG CAP PO PRN (01:26)
[2022-05-15] MEDS ORDERED: ONDANSETRON INJ 2 MG/ML 2 ML VIAL IV PRN (01:26)
[2022-05-15] MEDS ORDERED: PROMETHAZINE HCL 25 MG in SODIUM CHLORIDE 0.9% 50 ML IV PRN (01:26)
[2022-05-15] MEDS: IBUPROFEN 600 MG TAB PO PRN ×3 (04:41→13:27)
[2022-05-15] MEDS: oxyCODONE/ACETAMINOPHEN 5mg/325mg TAB PO PRN ×3 (04:42→13:27)
--- NOTE | 2022-05-15 05:44 | Obstetrical Progress Note ---
Date of Service <Krissy Jhon Tian DO - Last Filed: 05/15/22 06:51> May 15, 2022 Assessment & Plan <Krissy Ferreira DO Jaylan - Last Filed: 05/15/22 06:51> (1) Status post section: Ornelas is out and she is voiding, continue OOB and ambulation and progress diet as tolerated - Plan for 6 week post f/u (2) Gestational [-induced] hypertension without significant proteinuria, complicating childbirth: - Blood pressures have been well controlled post without any medications <Ada Anderson MD - Last Filed: 05/15/22 06:37> (1) Status post section: (2) Gestational [-induced] hypertension without significant proteinuria, complicating childbirth: Subjective <Krissy S. DO Jaylan - Last Filed: 05/15/22 06:51> Christianne is a 36 y/o female who is POD #1 following delivery at weeks. She reports feeling well overall this morning. Moderate abdominal cramping, pain well managed on analgesics. Voiding. Tolerating meals overnight and able to ambulate some. Is passing gas and no bowel movement. Has some persistent lochia with some improvement this morning. Currently breast feeding. Some cramping this morning in left calf. Review of Systems Denies fever, chills, sweats Denies shortness of breath, difficulty breathing, chest pain, palpitations, chest pressure. Denies breast pain. Denies dysuria. Denies headache or changes in vision. Physical Exam <Krissy Tian DO - Last Filed: 05/15/22 06:51> General: Alert, oriented. No acute distress. Cardiac: Regular rate and rhythm, no murmurs/rubs/gallops. Respiratory: Clear to auscultation bilaterally a/p, no wheezes/rales/rhonchi. No increased work of breathing. Symmetrical chest rise. No respiratory distress. Abdomen: Soft, nontender, nondistended. Uterus: Uterine fundus firm, palpable 1 cm below umbilicus. Surgical scar clean and healing well. Lower Extremities: Mild lower extremity edema. No deep calf pain. No erythematous Results & Data ([facility]) <Krissy Tian DO - Last Filed: 05/15/22 06:51> Vital Signs (Past 12 Hours) Vital Signs Temp Pulse Resp BP Pulse Ox O2 Del Method 05/15/22 04:30 36.6 C 73 18 121/75 Room Air 05/15/22 01:30 18 98 05/14/22 23:20 36.5 C 62 18 120/75 97 Room Air 05/15/22 00:58 16 95 05/14/22 23:20 18 96 05/14/22 22:17 18 96 05/14/22 20:30 16 98 05/14/22 19:40 36.9 C 61 18 122/77 98 Room Air 05/14/22 19:40 18 98 05/14/22 18:30 18 99 <Ada Anderson MD - Last Filed: 05/15/22 06:37> Co-Signing Physician Notes Resident Physician Supervision Note: I interviewed and examined the patient. Discussed with Dr. Tian and agree with findings and plan as documented in the note. Any exceptions or clarifications are listed here: [ ] Documented By: Ada Anderson MD, FACOG
[2022-05-15 06:12] LABS: Basophils # (auto) 0.01 K/uL (0-0.2); Basophils % (auto) 0.1 %; Eosinophils % (auto) 1.2 %; Hematocrit (blood only) 26.8 % (37.0-47.0); Immature Granulocytes # (auto) 0.12 K/uL (0.01-0.20); Immature Granulocytes % (auto) 1.5 %; Lymphocytes # (auto) 1.85 K/uL (1.2-3.4); Lymphocytes % (auto) 22.7 %; Mean Corpuscular Hemoglobin 30.6 pg (25.0-34.0); Mean Corpuscular Hgb Conc 33.6 g/dL (32.0-36.0); Mean Corpuscular Volume 91.2 fL (80.0-100.0); Mean Platelet Volume 11.4 fL (9.4-12.4); Monocytes # (auto) 0.37 K/uL (0.11-0.59); Monocytes % (auto) 4.5 %; Platelet Count 156 K/uL (130-400); RDW Coefficient of Variation 13.3 % (11.5-14.5); RDW Standard Deviation 43.8 fL (36.4-46.3); Red Blood Count 2.94 M/uL (4.20-5.40); White Blood Count 8.15 K/ul (4.8-10.8)
[2022-05-15] MEDS ORDERED: FERROUS SULFATE 325 MG TAB PO SCH (08:00)
[2022-05-15] MEDS ORDERED: PRENATAL VITAMIN 1 TAB PO SCH (08:00)
[2022-05-15] MEDS: DOCUSATE SODIUM 100 MG CAP PO SCH (08:26)
[2022-05-15] MEDS: SIMETHICONE 80 MG CHEW PO SCH ×2 (08:28→13:24)
[2022-05-15] MEDS ORDERED: ONDANSETRON 4 MG OD TAB PO PRN (10:13)
[2022-05-15] MEDS ORDERED: valACYclovir HCL 500 MG TABLET PO SCH (11:00)
--- NOTE | 2022-05-15 12:01 | Communication Note ---
Date of Service: May 15, 2022 Baby being transferred to [facility]. Patient requesting d/c. afvss. tolerating regular diet, voiding, passing gas and pain controlled. Script for percocet to [facility]. F/u in the office in 6 weeks. instructions given.
[2022-05-15] MEDS ORDERED: bisacodyL 5 MG TABEC PO SCH (20:00)
--- NOTE | 2022-05-16 08:21 | Discharge Summary ---
Date of Service May 16, 2022 Discharge Data Consultations 05/14/22 05:35 Consult Anesthesiology Stat Procedures Performed Operation Date: 05/14/22 07:30 Actual Procedures p Section (Delivery of LMC at 0805 in LD OR Through Abdominal Incision) In LD - Ada Anderson MD Hospital Course (1) Previous delivery affecting , antepartum: Plan Patient was admitted for, and underwent, planned section. The surgery was without complications; please see operative report for details. After an uncomplicated recovery, she was discharged to home with the usual postoperative pain management and follow up plan (6 weeks at the OB office) Coding Level of Care Code None Diagnoses Previous delivery affecting , antepartum O34.219
[2022-05-16] MEDS ORDERED: bisacodyL 10 MG SUPP PR PRN (08:55)
--- NOTE | 2022-05-22 07:45 | Coding Query ---
CODING QUERY To promote full compliance with coding requirements relating to patient care, provider participation is requested in all cases of screen printing stencil preparer uncertainty. Please assist us with the question(s) below: Coding Question(s): Please document weeks of gestation Physician's Response(s): Third trimester Thank you Ada Higgins Principal Diagnosis: "that condition established after study, to be chiefly responsible for occasioning the admission of the patient to the hospital for care." Co-Existing Principal Diagnosis: "when two or more diagnoses equally meet the criteria for principal diagnosis as determined by the circumstances of admission, diagnostic work up, and/or therapy provided, and the Alphabetic Index, Tabular List, or another coding guideline does not provide sequencing direction, any one of the diagnoses may be sequenced first." "When the physician has documented what appears to be a current diagnosis in the body of the record, but has not included the diagnosis in the final diagnostic statement, the physician should be asked whether the diagnosis should be added." (Source Coding [facility] 2 QTR90. p3-4) YOGESH
== END 2022-05-15 13:40 | disposition home or self-care (01) | DRG 788 ==
LOC: 4S1 05:33 → 4E2 11:10 → EDSTATUS 05-29 07:30